=== PATIENT | female | born 1940 | race Caucasian/White ===

== ENCOUNTER 2022-12-12 15:45 | Inpatient (IN) | payer MEDICARE, OTHER, SELFPAY ==
[2022-12-12] VITALS (18 sets, daily range): BP systolic 67–126; BP diastolic 45–85; PULSE 57–145; RESP 13–23; TEMP 36.5–37.2; O2SAT 84–100; BMI 30.2
--- NOTE | 2022-12-12 16:14 | ED.GENADUL1 ---
Documented by User: Duane Wilson MD 12/12/22 16:17 HPI - General Adult General Chief complaint: Anxiety Stated complaint: tachycardia Time Seen by Provider: 12/12/22 16:05 Source: patient and other Source information: EMS Mode of arrival: ambulance Limitations: no limitations and altered mental status History of Present Illness HPI narrative: this patient's here with two daughters for evaluation of not feeling well increasing weakness today. She does have anxiety disorder as well as dementia so she herself is a limited historian. However she and her family indicate that they've not had any problems with congestive heart failure myocardial infarctions cardiac arrhythmias. She does have hypertension and takes a beta yari including a DOMINIQUE inhibitor as well. She is not any pain or discomfort. She lost her three months ago is now living with the daughters. She is not known to have a thyroid disorder. She's compliant with medications because the daughters give it to her. She has no discomfort today and no real shortness of breath. Related Data Home Medications Medication Instructions Recorded Confirmed atenolol 25 mg tablet 25 mg PO Q24H 12/12/22 12/12/22 buspirone 5 mg tablet 5 mg PO TID 12/12/22 12/12/22 diazepam 5 mg tablet 5 mg PO BID 12/12/22 12/12/22 lisinopril 20 mg tablet 20 mg PO DAILY 12/12/22 12/12/22 meloxicam 7.5 mg tablet 7.5 mg PO DAILY 12/12/22 12/12/22 oxycodone 10 mg tablet 10 mg PO Q12H 12/12/22 12/12/22 Allergies Allergy/AdvReac Type Severity Reaction Status Date / Time No Known Drug Allergies Allergy Verified 12/12/22 15:41 [facility] Medical History (Updated 12/12/22 @ 21:17 by Esmer Sage) Surgical History (Updated 12/12/22 @ 21:17 by Esmer Sage) Family History (Updated 12/12/22 @ 21:07 by Esmer Sage) Father Family history of cancer Grandmother Family history of stroke Social History (Updated 12/12/22 @ 21:08 by Esmer Sage) Within the past year, how often did you have a drink containing alcohol: never Score interpretation: A score less than 3 is consistent with normal alcohol consumption. 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 Highest level of school completed/degree received: 11th grade Are you now , , , , never or living with a partner: In a typical week, how many times do you talk on the telephone with family, friends, or neighbors: 3 or more times per week How often do you get together with friends or relatives: 3 or more times per week How often do you attend methodist or taoism services: never Do you belong to any clubs or organizations such as methodist groups unions, [employer] or athletic groups, or school groups: no Total score: 1 Score interpretation: A score of less than or equal to 1 indicates the most socially isolated. Little interest or pleasure in doing things: not at all Feeling down, depressed, or hopeless: not at all Feel stressed/tense/nervous/anxious/difficulty sleeping: not at all Life stressors: recent of family or friend Do you think of yourself as: straight/heterosexual Gender Identity: female Exam Narrative Exam Narrative: awake alert pleasant denies any discomfort but is not a great historian as noted previously consistent with her history of dementia HEENT shows no evidence of pallor or anemia or or thyromegaly. I shows no scleral icterus or conjunctivitis and extraocular muscles are normal. Neck is soft and supple Chest wall is unremarkable no sternotomy incisions are noted. Tenriism is her lungs to be clear with no wheezes rales or rhonchi in her pulse ox is ninety-five percent on room air. 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 No P waves could really be identified on the EKG. Leg show no evidence of venous cords edema swelling or erythema. Constitutional Vital Signs - 24 hr 12/12/22 15:41 12/12/22 15:47 12/12/22 15:48 Temperature 99 F Pulse Rate 145 H 144 H Pulse Rate [Monitor] 145 H Respiratory Rate 20 21 15 Blood Pressure Blood Pressure [Right Arm] 93/76 Pulse Oximetry 95 96 Oxygen Delivery Method Room Air 12/12/22 15:49 12/12/22 16:48 12/12/22 17:00 Temperature Pulse Rate 137 H 132 H 139 H Pulse Rate [Monitor] Respiratory Rate 23 22 22 Blood Pressure 111/84 H 106/72 99/79 Blood Pressure [Right Arm] Pulse Oximetry 97 100 91 L Oxygen Delivery Method 12/12/22 17:15 12/12/22 17:15 12/12/22 17:30 Temperature Pulse Rate 131 H 132 H 132 H Pulse Rate [Monitor] Respiratory Rate 14 20 17 Blood Pressure 120/85 H 120/85 H 83/61 L Blood Pressure [Right Arm] Pulse Oximetry 94 L 95 95 Oxygen Delivery Method 12/12/22 17:45 12/12/22 18:01 12/12/22 18:02 Temperature Pulse Rate 135 H 133 H 134 H Pulse Rate [Monitor] Respiratory Rate 21 23 18 Blood Pressure 104/69 75/54 L 67/48 L Blood Pressure [Right Arm] Pulse Oximetry 84 L 95 97 Oxygen Delivery Method 12/12/22 18:03 12/12/22 18:20 12/12/22 18:23 Temperature Pulse Rate 137 H 137 H 138 H Pulse Rate [Monitor] Respiratory Rate 21 21 18 Blood Pressure 84/58 L 71/45 L 89/71 L Blood Pressure [Right Arm] Pulse Oximetry 95 94 L Oxygen Delivery Method 12/12/22 19:00 12/12/22 19:00 12/12/22 19:15 Temperature Pulse Rate 74 73 74 Pulse Rate [Monitor] Respiratory Rate 21 13 23 Blood Pressure 96/63 96/63 114/82 H Blood Pressure [Right Arm] Pulse Oximetry 93 L Oxygen Delivery Method 12/12/22 19:30 Temperature Pulse Rate Pulse Rate [Monitor] Respiratory Rate Blood Pressure 126/59 H Blood Pressure [Right Arm] Pulse Oximetry Oxygen Delivery Method Course Vital Signs Vital signs: Vital Signs Temperature 99 F 12/12/22 15:41 Pulse Rate 145 H 12/12/22 15:41 Respiratory Rate 20 12/12/22 15:41 Blood Pressure 93/76 12/12/22 15:41 Pulse Oximetry 95 12/12/22 15:41 Oxygen Delivery Method Room Air 12/12/22 15:41 Temperature 97.7 F 12/12/22 20:34 Pulse Rate 57 L 12/12/22 20:34 Respiratory Rate 20 12/12/22 20:34 Blood Pressure 122/60 H 12/12/22 20:34 Pulse Oximetry 95 12/12/22 20:34 Oxygen Delivery Method Room Air 12/12/22 22:30 Medical Decision Making Lab Data Labs: Lab Results 12/12/22 12/12/22 Range/Units 16:35 17:15 WBC 8.3 (4.0-11.0) 10^3/uL RBC 4.17 L (4.20-5.40) 10^6/uL Hgb 13.4 (12.0-16.0) g/dL Hct 39.1 (36.0-48.0) % MCV 93.8 (81.0-99.0) fL MCH 32.1 (26.7-34.0) pg MCHC 34.3 (29.9-35.2) g/dL RDW 12.6 (11.0-15.0) % Plt Count 197 (150-450) 10^3/uL MPV 11.1 (9.5-13.5) fL Neut % (Auto) 69.3 (43.0-75.0) % Lymph % (Auto) 17.7 L (20.5-60.0) % Hitchcock % (Auto) 9.6 (1.7-12.0) % Eos % (Auto) 2.2 (0.9-7.0) % Baso % (Auto) 0.8 (0.2-2.0) % Neut # (Auto) 5.8 (1.4-6.5) 10^3/uL Lymph # (Auto) 1.5 (1.2-3.8) 10^3/uL [place] # (Auto) 0.8 (0.3-0.8) 10^3/uL Eos # (Auto) 0.2 (0.0-0.7) 10^3/uL Baso # (Auto) 0.1 (0.0-0.1) 10^3/uL Abs Immat Gran (auto) 0.03 (0.00-0.03) 10^3/uL Imm/Tot Granulo (auto) 0.4 (0.0-0.5) % D-Dimer 0.67 H* (<=0.59) mg/L FEU Sodium 136 (136-145) mmol/L Potassium 4.6 (3.5-5.1) mmol/L Chloride 106 (98-107) mmol/L Carbon Dioxide 21.4 (21.0-32.0) mmol/L Anion Gap 13.2 BUN 17.0 (7.0-18.0) mg/dL Creatinine 1.08 H (0.55-1.02) mg/dL Est GFR ( Amer) 59 L (>=60) Est GFR (Non-Af Amer) 48 L (>=60) BUN/Creatinine Ratio 15.7 Glucose 114 H (74-106) mg/dL Lactate 2.1 H (0.4-2.0) mmol/L Calcium 9.2 (8.5-10.1) mg/dL Total Bilirubin 0.2 (0.2-1.0) mg/dL AST 25 (15-37) U/L ALT 32 (14-59) U/L Alkaline Phosphatase 37 L (46-116) U/L Troponin I High Sens 8.8 (4.0-51.3) pg/mL NT-Pro-B Natriuret Pep 567.0 (<=1800.0) pg/mL Total Protein 6.5 (6.4-8.2) g/dL Albumin 3.5 (3.4-5.0) g/dL Globulin 3.0 g/dL Albumin/Globulin Ratio 1.2 TSH 1.476 (0.358-3.740) uIU/mL Urine Color Lt. yellow (YELLOW) Urine Clarity Sl cloudy (CLEAR) Urine pH 6.0 (5.0-9.0) Ur Specific [place] 1.015 (1.005-1.025) Urine Protein Trace (NEG/TRACE) mg/dL Urine Glucose (UA) Negative (NEGATIVE) mg/dL Urine Ketones Negative (NEGATIVE) mg/dL Urine Occult Blood Small A (NEGATIVE) Urine Nitrite Negative (NEGATIVE) Urine Bilirubin Negative (NEGATIVE) Urine Urobilinogen 0.2 (0.2-1.0) EU/dL Ur Leukocyte Esterase Large A (NEGATIVE) Urine RBC 2-5 A (0-2) #/HPF Urine WBC >100 A (NONE SEEN) #/HPF Ur Squamous Epith Cells Moderate A (NONE/RARE) #/LPF Urine Crystals None seen (None Seen) #/HPF Urine Bacteria Large A (NONE SEEN) #/HPF Urine Casts None seen (NONE SEEN) #/LPF Urine Mucus None seen (NONE SEEN) Ur Culture Indicated? Yes Discharge Plan Discharge Chief Complaint: Anxiety Clinical Impression: Sepsis, Acute anxiety, Acute UTI, Atrial fibrillation with rapid ventricular response Patient Disposition: Admitted as Observation Time of Disposition Decision: 19:33 Discharge Date/Time: 12/12/22 20:21 Sign Out Sign Out Data: Patient Sign Out occurred on 12/12/22 at 19:12. Patient's care was discussed, and care was transferred from Duane Wilson MD to Hansel Prescott. Sign Out Comment: patient likely has sepsis secondary to UTI but we are waiting for lactate and CTA chest - signed out to Dr Prescott at 7pm - plan to admit once workup is completed. Last updated by Duane Wilson MD at 12/12/22 19:04 Documented by User: Hansel Prescott 12/12/22 19:36 HPI - General Adult General Chief complaint: Anxiety Stated complaint: tachycardia Time Seen by Provider: 12/12/22 16:05 Related Data Home Medications Medication Instructions Recorded Confirmed atenolol 25 mg tablet 25 mg PO Q24H 12/12/22 12/12/22 buspirone 5 mg tablet 5 mg PO TID 12/12/22 12/12/22 diazepam 5 mg tablet 5 mg PO BID 12/12/22 12/12/22 lisinopril 20 mg tablet 20 mg PO DAILY 12/12/22 12/12/22 meloxicam 7.5 mg tablet 7.5 mg PO DAILY 12/12/22 12/12/22 oxycodone 10 mg tablet 10 mg PO Q12H 12/12/22 12/12/22 Allergies Allergy/AdvReac Type Severity Reaction Status Date / Time No Known Drug Allergies Allergy Verified 12/12/22 15:41 PFSH PFS Medical History (Updated 12/12/22 @ 21:17 by Esmer Sage) Surgical History (Updated 12/12/22 @ 21:17 by Esmer Sage) Family History (Updated 12/12/22 @ 21:07 by Esmer Sage) Father Family history of cancer Grandmother Family history of stroke Social History (Updated 12/12/22 @ 21:08 by Esemr Sage) Within the past year, how often did you have a drink containing alcohol: never Score interpretation: A score less than 3 is consistent with normal alcohol consumption. 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 Highest level of school completed/degree received: 11th grade Are you now , , , , never or living with a partner: In a typical week, how many times do you talk on the telephone with family, friends, or neighbors: 3 or more times per week How often do you get together with friends or relatives: 3 or more times per week How often do you attend methodist or taoism services: never Do you belong to any clubs or organizations such as methodist groups unions, [employer] or athletic groups, or school groups: no Total score: 1 Score interpretation: A score of less than or equal to 1 indicates the most socially isolated. Little interest or pleasure in doing things: not at all Feeling down, depressed, or hopeless: not at all Feel stressed/tense/nervous/anxious/difficulty sleeping: not at all Life stressors: recent of family or friend Do you think of yourself as: straight/heterosexual Gender Identity: female Exam Constitutional Vital Signs - 24 hr 12/12/22 15:41 12/12/22 15:47 12/12/22 15:48 Temperature 99 F Pulse Rate 145 H 144 H Pulse Rate [Monitor] 145 H Respiratory Rate 20 21 15 Blood Pressure Blood Pressure [Right Arm] 93/76 Pulse Oximetry 95 96 Oxygen Delivery Method Room Air 12/12/22 15:49 12/12/22 16:48 12/12/22 17:00 Temperature Pulse Rate 137 H 132 H 139 H Pulse Rate [Monitor] Respiratory Rate 23 22 22 Blood Pressure 111/84 H 106/72 99/79 Blood Pressure [Right Arm] Pulse Oximetry 97 100 91 L Oxygen Delivery Method 12/12/22 17:15 12/12/22 17:15 12/12/22 17:30 Temperature Pulse Rate 131 H 132 H 132 H Pulse Rate [Monitor] Respiratory Rate 14 20 17 Blood Pressure 120/85 H 120/85 H 83/61 L Blood Pressure [Right Arm] Pulse Oximetry 94 L 95 95 Oxygen Delivery Method 12/12/22 17:45 12/12/22 18:01 12/12/22 18:02 Temperature Pulse Rate 135 H 133 H 134 H Pulse Rate [Monitor] Respiratory Rate 18 Blood Pressure 104/69 75/54 L 67/48 L Blood Pressure [Right Arm] Pulse Oximetry 84 L 95 97 Oxygen Delivery Method 12/12/22 18:03 12/12/22 18:20 12/12/22 18:23 Temperature Pulse Rate 137 H 137 H 138 H Pulse Rate [Monitor] Respiratory Rate 18 Blood Pressure 84/58 L 71/45 L 89/71 L Blood Pressure [Right Arm] Pulse Oximetry 95 94 L Oxygen Delivery Method 12/12/22 19:00 12/12/22 19:00 12/12/22 19:15 Temperature Pulse Rate 74 73 74 Pulse Rate [Monitor] Respiratory Rate 23 Blood Pressure 96/63 96/63 114/82 H Blood Pressure [Right Arm] Pulse Oximetry 93 L Oxygen Delivery Method 12/12/22 19:30 Temperature Pulse Rate Pulse Rate [Monitor] Respiratory Rate Blood Pressure 126/59 H Blood Pressure [Right Arm] Pulse Oximetry Oxygen Delivery Method Course Vital Signs Vital signs: Vital Signs Temperature 99 F 12/12/22 15:41 Pulse Rate 145 H 12/12/22 15:41 Respiratory Rate 20 12/12/22 15:41 Blood Pressure 93/76 12/12/22 15:41 Pulse Oximetry 95 12/12/22 15:41 Oxygen Delivery Method Room Air 12/12/22 15:41 Temperature 97.7 F 12/12/22 20:34 Pulse Rate 57 L 12/12/22 20:34 Respiratory Rate 20 12/12/22 20:34 Blood Pressure 122/60 H 12/12/22 20:34 Pulse Oximetry 95 12/12/22 20:34 Oxygen Delivery Method Room Air 12/12/22 22:30 Medical Decision Making MDM Narrative Medical decision making narrative: I took over this patient at 7 PM with shift change by signed out by Dr. Pranav Wilson. His exam findings and HPI are noted above. 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 Blood drawn and sent for evaluation, including blood cultures and lactate per sepsis protocol. urine was obtained sent for testing and shown to be infected. Patient with unremarkable CBC including normal white blood cell count lactate is elevated at 2.1. BMP reveals normal BUS with a creatinine of 1.08, minimally elevated. UA shows large leukocyte esterase and sign of infection is likely source of this patient's sepsis. Troponin and BNP were negative. chest x-ray shows atelectasis versus findings that may indicate mucous plugging. the patient was given IV ciprofloxacin. She was also given normal saline IV fluid and that caused her rapid atrial fibrillation, rate controlled atrial fibrillation. My two EKG interpretations are noted above. the patient was apparently given IV Ativan. That seemed to increase her agitation, according to Dr. Kimball. He ordered her to receive IV Valium as well. CT of the chest was ordered and is currently pending. She is DNR comfort care. Plan is to admit this patient to the hospitalist service for further evaluation treatment which will include normal saline IV fluid and continue IV antibiotics. I paged the on-call tell hospitalist to discuss admission. Dr. zhong and I discussed the case and he requested obs admission status, med/surg floor without telemetry since she is a DNRCC. I will review CTA result. Lab Data Lab results reviewed: Yes I reviewed the patient's lab results Labs: Lab Results 12/12/22 12/12/22 Range/Units 16:35 17:15 WBC 8.3 (4.0-11.0) 10^3/uL RBC 4.17 L (4.20-5.40) 10^6/uL Hgb 13.4 (12.0-16.0) g/dL Hct 39.1 (36.0-48.0) % MCV 93.8 (81.0-99.0) fL MCH 32.1 (26.7-34.0) pg MCHC 34.3 (29.9-35.2) g/dL RDW 12.6 (11.0-15.0) % Plt Count 197 (150-450) 10^3/uL MPV 11.1 (9.5-13.5) fL Neut % (Auto) 69.3 (43.0-75.0) % Lymph % (Auto) 17.7 L (20.5-60.0) % [place] % (Auto) 9.6 (1.7-12.0) % Eos % (Auto) 2.2 (0.9-7.0) % Baso % (Auto) 0.8 (0.2-2.0) % Neut # (Auto) 5.8 (1.4-6.5) 10^3/uL Lymph # (Auto) 1.5 (1.2-3.8) 10^3/uL [place] # (Auto) 0.8 (0.3-0.8) 10^3/uL Eos # (Auto) 0.2 (0.0-0.7) 10^3/uL Baso # (Auto) 0.1 (0.0-0.1) 10^3/uL Abs Immat Gran (auto) 0.03 (0.00-0.03) 10^3/uL Imm/Tot Granulo (auto) 0.4 (0.0-0.5) % D-Dimer 0.67 H* (<=0.59) mg/L FEU Sodium 136 (136-145) mmol/L Potassium 4.6 (3.5-5.1) mmol/L Chloride 106 (98-107) mmol/L Carbon Dioxide 21.4 (21.0-32.0) mmol/L Anion Gap 13.2 BUN 17.0 (7.0-18.0) mg/dL Creatinine 1.08 H (0.55-1.02) mg/dL Est GFR ( Amer) 59 L (>=60) Est GFR (Non-Af Amer) 48 L (>=60) BUN/Creatinine Ratio 15.7 Glucose 114 H (74-106) mg/dL Lactate 2.1 H (0.4-2.0) mmol/L Calcium 9.2 (8.5-10.1) mg/dL Total Bilirubin 0.2 (0.2-1.0) mg/dL AST 25 (15-37) U/L ALT 32 (14-59) U/L Alkaline Phosphatase 37 L (46-116) U/L Troponin I High Sens 8.8 (4.0-51.3) pg/mL NT-Pro-B Natriuret Pep 567.0 (<=1800.0) pg/mL Total Protein 6.5 (6.4-8.2) g/dL Albumin 3.5 (3.4-5.0) g/dL Globulin 3.0 g/dL Albumin/Globulin Ratio 1.2 TSH 1.476 (0.358-3.740) uIU/mL Urine Color Lt. yellow (YELLOW) Urine Clarity Sl cloudy (CLEAR) Urine pH 6.0 (5.0-9.0) Ur Specific [place] 1.015 (1.005-1.025) Urine Protein Trace (NEG/TRACE) mg/dL Urine Glucose (UA) Negative (NEGATIVE) mg/dL Urine Ketones Negative (NEGATIVE) mg/dL Urine Occult Blood Small A (NEGATIVE) Urine Nitrite Negative (NEGATIVE) Urine Bilirubin Negative (NEGATIVE) Urine Urobilinogen 0.2 (0.2-1.0) EU/dL Ur Leukocyte Esterase Large A (NEGATIVE) Urine RBC 2-5 A (0-2) #/HPF Urine WBC >100 A (NONE SEEN) #/HPF Ur Squamous Epith Cells Moderate A (NONE/RARE) #/LPF Urine Crystals None seen (None Seen) #/HPF Urine Bacteria Large A (NONE SEEN) #/HPF Urine Casts None seen (NONE SEEN) #/LPF Urine Mucus None seen (NONE SEEN) Ur Culture Indicated? Yes Imaging Data Chest x-ray: Radiologist's impression: Patient Name: PEDRO HENSLEY MRN: [id number] date: 1940 Sex: F Assigned Patient Location: ED.MAIN Current Patient Location: ER Accession/Order Number: [id number] Exam Date: 12/12/2022 16:40 Report Date: 12/12/2022 16:58 At the request of: DUANE WILSON Procedure: XR chest 1V EXAM: XR chest 1V HISTORY: tachycardia COMPARISON: None. TECHNIQUE: Chest X-ray AP, 1 view FINDINGS: Support devices: None. Lungs/pleura: No pneumothorax. There is right middle and upper lobe opacification with shift of the mediastinum and trachea to the right, representing right upper and middle lobes atelectasis. There is blunting of the lateral costophrenic angles, may represent small pleural effusions. Heart and mediastinum: Normal contours. Bones: No acute abnormality identified. Impression: Radiographic evidence of right upper and middle lobes atelectasis and small bilateral pleural effusions. Finding can be due to mucous plugging. CT of the chest is recommended for better evaluation. Electronically authenticated by: SHILA SHEEHAN Date: 12/12/2022 16:58 ECG Data Interpretation: #1 EKG - interpretation: Emergency Department physician interpretation. rapid atrial fibrillation at 143bpm. PVC noted. No ST elevation but there is an inverted T-wave in lead aVL #2 EKG - EKG interpretation: Emergency Department physician interpretation. rate controlled atrial fibrillation at 77bpm. Normal axis, normal intervals and no ST segment elevation or depression. inverted T-wave in lead aVL is now flattened Discharge Plan Discharge Chief Complaint: Anxiety Clinical Impression: Sepsis, Acute anxiety, Acute UTI, Atrial fibrillation with rapid ventricular response Patient Disposition: Admitted as Observation Time of Disposition Decision: 19:33 Discharge Date/Time: 12/12/22 20:21 Sign Out Sign Out Data: Patient Sign Out occurred on 12/12/22 at 19:12. Patient's care was discussed, and care was transferred from Duane Wilson MD to Hansel Prescott. Sign Out Comment: patient likely has sepsis secondary to UTI but we are waiting for lactate and CTA chest - signed out to Dr Prescott at 7pm - plan to admit once workup is completed. Last updated by Duane Wilson MD at 12/12/22 19:04
--- NOTE | 2022-12-12 16:17 | ECG_ITS ---
The [facility] Test Date: 2022-12-12 Pat Name: PEDRO HENSLEY Department: Room: - Gender: Female Marketer: : 1940 Requested By: Order Number: [id number] Reading MD: AMIRAH HUDSON Measurements Intervals [place] Rate: 143 P: -14597 VT: -54055 QRS: 60 QRSD: 76 T: 51 QT: 286 QTc: 369 Interpretive Statements 1420 Undetermined rhythm (Possible supraventricular tachycardia) 1570 with occasional ventricular premature complexes [address] depression 9150 abnormal ECG No previous ECG available for comparison Electronically Signed On 12-13-2022 7:10:05 EDT by AMIRAH HUDSON
--- NOTE | 2022-12-12 16:40 | XR_ITS ---
The [address] [address] Patient Name: PEDRO HENSLEY MRN: [id number] date: 1940 Sex: F Assigned Patient Location: ED.MAIN Current Patient Location: ER Accession/Order Number: [id number] Exam Date: 12/12/2022 16:40 Report Date: 12/12/2022 16:58 At the request of: LACI DONOHUE Procedure: XR chest 1V EXAM: XR chest 1V HISTORY: tachycardia COMPARISON: None. TECHNIQUE: Chest X-ray AP, 1 view FINDINGS: Support devices: None. Lungs/pleura: No pneumothorax. There is right middle and upper lobe opacification with shift of the mediastinum and trachea to the right, representing right upper and middle lobes atelectasis. There is blunting of the lateral costophrenic angles, may represent small pleural effusions. Heart and mediastinum: Normal contours. Bones: No acute abnormality identified. Impression: Radiographic evidence of right upper and middle lobes atelectasis and small bilateral pleural effusions. Finding can be due to mucous plugging. CT of the chest is recommended for better evaluation. Electronically authenticated by: SHILA SHEEHAN Date: 12/12/2022 16:58
[2022-12-12] MEDS: METOPROLOL TARTRATE 5 MG/5 ML VIAL IVP ×3 (16:49→17:47)
[2022-12-12] MEDS: 0.9 % SODIUM CHLORIDE 1,000 ML 100 ML IV ×2 (16:50→23:53)
[2022-12-12 16:53] LABS: Basophils Absolute Auto 0.1 10^3/uL (0.0-0.1); Basophils Percent Auto 0.8 % (0.2-2.0); Eosinophils Absolute Auto 0.2 10^3/uL (0.0-0.7); Eosinophils Percent Auto 2.2 % (0.9-7.0); Hematocrit 39.1 % (36.0-48.0); Hemoglobin 13.4 g/dL (12.0-16.0); Immature Granulocytes Abs Auto 0.03 10^3/uL (0.00-0.03); Immature Granulocytes Pct Auto 0.4 % (0.0-0.5); Lymphocytes Absolute Auto 1.5 10^3/uL (1.2-3.8); Lymphocytes Percent Auto 17.7 % (20.5-60.0); Mean Corpuscular HGB Conc 34.3 g/dL (29.9-35.2); Mean Corpuscular Hemoglobin 32.1 pg (26.7-34.0); Mean Corpuscular Volume 93.8 fL (81.0-99.0); Mean Platelet Volume 11.1 fL (9.5-13.5); Monocytes Absolute Auto 0.8 10^3/uL (0.3-0.8); Monocytes Percent Auto 9.6 % (1.7-12.0); Neutrophils Absolute Auto 5.8 10^3/uL (1.4-6.5); Neutrophils Percent Auto 69.3 % (43.0-75.0); Platelet Count 197 10^3/uL (150-450); Red Blood Count 4.17 10^6/uL (4.20-5.40); Red Cell Distribution Width 12.6 % (11.0-15.0); White Blood Count 8.3 10^3/uL (4.0-11.0)
[2022-12-12 17:11] LABS: Alanine Aminotransferase 32 U/L (14-59); Albumin Globulin Ratio 1.2; Albumin Level 3.5 g/dL (3.4-5.0); Alkaline Phosphatase 37 U/L (46-116); Anion Gap 13.2; Aspartate Amino Transferase 25 U/L (15-37); BUN Creatinine Ratio 15.7; Bilirubin Total 0.2 mg/dL (0.2-1.0); Calcium 9.2 mg/dL (8.5-10.1); Carbon Dioxide 21.4 mmol/L (21.0-32.0); Chloride 106 mmol/L (98-107); Estimated GFR (African America 59 (>=60); Estimated GFR (Non-African Ame 48 (>=60); Glucose 114 mg/dL (74-106); Lactate/Lactic Acid 2.1 mmol/L (0.4-2.0); Potassium 4.6 mmol/L (3.5-5.1); Sodium 136 mmol/L (136-145); Total Protein 6.5 g/dL (6.4-8.2); Troponin I High Sensitivity 8.8 pg/mL (4.0-51.3)
[2022-12-12 17:16] LABS: Thyroid Stimulating Hormone 1.476 uIU/mL (0.358-3.740)
[2022-12-12 17:18] LABS: D Dimer 0.67 mg/L FEU (<=0.59)
[2022-12-12 17:26] LABS: Bilirubin Urine NEGATIVE (NEGATIVE); Blood Urine SMALL (NEGATIVE); Clarity Urine SL CLOUDY (CLEAR); Color Urine LT. YELLOW (YELLOW); Glucose Urine UA NEGATIVE (NEGATIVE); Ketones Urine NEGATIVE (NEGATIVE); Leukocyte Esterase Urine LARGE (NEGATIVE); Nitrite Urine NEGATIVE (NEGATIVE); Protein Urine TRACE mg/dL (NEG/TRACE); Specific Gravity Urine 1.015 (1.005-1.025); Urobilinogen Urine 0.2 EU/dL (0.2-1.0)
[2022-12-12 17:28] LABS: Urine Microscopic Indicated YES
--- NOTE | 2022-12-12 17:31 | CT_ITS ---
[address] [address] Patient Name: PEDRO HENSLEY MRN: [id number] date: 1940 Sex: F Assigned Patient Location: ER Current Patient Location: Accession/Order Number: [id number] Exam Date: 12/12/2022 19:21 Report Date: 12/12/2022 20:21 At the request of: LACI DONOHUE Procedure: CT angio chest EXAMINATION: CHEST CT WITH CONTRAST (PULMONARY EMBOLISM PROTOCOL) Indication: dyspnea Technique: Spiral CT acquisition of the chest from the thoracic inlet to the upper abdomen following IV contrast. Maximum intensity projection (MIP)reconstructions were performed. All CT scans at this facility use dose modulation, iterative reconstruction, and/or weight based dosing when appropriate to reduce radiation dose to as low as reasonably achievable. Contrast: 100 mL of Omnipaque 350 IV Comparison: Chest radiograph 12/12/2022 RESULT: Limitations: None. Evaluation for thromboembolic disease: - Right heart chambers: No thromboembolic disease. - Main pulmonary arteries: No thromboembolic disease. - Lobar pulmonary arteries: No thromboembolic disease. - Segmental pulmonary arteries: No thromboembolic disease. - Subsegmental pulmonary arteries: No thromboembolic disease. Lines, tubes, and devices: None. Lung parenchyma and pleura: No consolidation. No suspicious pulmonary nodule. No pleural effusion. Central airways are patent. Bibasilar atelectasis and mild scarring. Thoracic inlet, heart, and mediastinum: No lymphadenopathy in the axillary, mediastinal, or hilar regions. 3.9 cm aneurysmal dilation ascending thoracic aorta. Main pulmonary artery is normal in caliber.. Mild cardiomegaly. Moderate coronary artery atherosclerotic calcifications are noted, although the study is not optimized for coronary assessment. No pericardial effusion or thickening. Small hiatal hernia. Thyroid gland is unremarkable. Bones and soft tissues: No destructive bone lesion. Degenerative changes of the thoracic spine. Chest wall is unremarkable. Upper abdomen: No abnormality in the imaged upper abdomen. . IMPRESSION: No CT evidence of pulmonary embolism or acute findings in the thorax. 3.9 cm aneurysmal dilation ascending thoracic aorta and moderate coronary artery calcifications. Electronically authenticated by: ORLY KEARNEY Date: 12/12/2022 20:21
[2022-12-12 17:32] LABS: Bacteria Urine LARGE #/HPF (NONE SEEN); Cast Seen? NONE SEEN #/LPF (NONE SEEN); Crystals Seen? None Seen #/HPF (None Seen); Mucus Urine NONE SEEN (NONE SEEN); Squamous Epithelial Cell Urine MODERATE #/LPF (NONE/RARE); Urine Culture Indicated YES; WBC Urine >100 #/HPF (NONE SEEN)
[2022-12-12] MEDS: CIPROFLOXACIN IN 5 % DEXTROSE 400 MG/200 ML PIGGYBACK 200 MG IV (17:50)
[2022-12-12] MEDS: LORAZEPAM 2 MG/ML 1 ML VIAL IV (17:50)
[2022-12-12] MEDS: 0.9 % SODIUM CHLORIDE 1,000 ML 1000 ML IV (18:59)
[2022-12-12] MEDS: DIAZEPAM 5 MG/ML - 2 ML INJ SYRINGE IV (19:04)
--- NOTE | 2022-12-12 19:14 | PC.NURSE ---
pt more confused and irritable at this time. Pt assisted to bedpan with another RN pt insisted she feels pressure down there. Pt did produce urine. skin care completed. 2 daughters remain at bedside. Dr at bedside. Verbal order received for 5mg of IV valium (see MAR).
--- NOTE | 2022-12-12 19:25 | ECG_ITS ---
[facility] Test Date: 2022-12-12 Pat Name: PEDRO HENSLEY Department: Room: 2181 Gender: Female Medical Sales: : 1940 Requested By: Hansel Prescott Order Number: [id number] Reading MD: AMIRAH HUDSON Measurements Intervals [place] Rate: 77 P: -[id number] AR: 440 QRS: 64 QRSD: 78 T: 67 QT: 394 QTc: 425 Interpretive Statements Sinus rhythm with first degree AV block 9140 abnormal rhythm ECG Electronically Signed On 12-13-2022 7:13:51 EDT by AMIRAH HUDSON
--- NOTE | 2022-12-12 20:06 | PC.NURSE ---
Pt's granddaughter, Gail, called at this time in concerns that pt's daughter Donna taking pt's pain medications. Per granddaughter pt goes between [place] and [facility] for care when pt is at [facility] pt does not get her medications correctly and always starts acting differently and when pt is at [facility] pt will cry stating she doesn't want to go back to [facility]. Granddaughter states that she was with pt and went to give her pain medication there was not any Oxycodone and instead it was Valium. Pt has been getting extra Valium and no Oxycodone when at [facility]. Granddaughter states that pt just got a refill of Oxycodone 11/16 and the next week the pt was missing [address] Yeung is aware of this. This nurse explained to pt that pt will be admitted and that medications will be controlled while here and that social sciences instructor will be involved and that they will call adult protection services while pt is in hospital.
[2022-12-12] MEDS: QUETIAPINE FUMARATE 25 MG TABLET 12.5 MG PO (21:02)
--- NOTE | 2022-12-12 22:39 | P.PN_ITS ---
Progress Note: Subjective Subjective Interval history: CC: Weakness, worsening confusion HPI: This is a 82 years old white female with history of congestive heart failure, coronary artery disease, dementia, atrial fibrillation who presents to emergency room with above complaints. Patient is a poor historian. Majority of information obtained from ER physician and medical records. Apparently patient has been brought in by family (2 daughters). Patient denies any pain, shortness of breath or fevers. Apparently patient lost her about 3 months ago and now she is living with her daughters. Patient is compliant (daughters providing medications for her). Evaluation in the emergency room was significant for signs of urinary tract infection, tachycardia, elevated lactic acid. Patient triggered SIRS/sepsis criteria. Medical service is consulted for admission. Exam Narrative Exam Narrative: Physical Exam: Not in distress, hard of hearing, confused, Head - atraumatic, eyes - pupils equal, round, reactive to light, extra ocular movement intact, MMM Neck - supple, thyroid not enlarged, LN not palpated Lungs - clear to auscultation, no dullness on percussion CVS - heart sounds S1, S2, no additional murmurs gallop, irregularly irregular rate and rhythm Gastrointestinal?abdomen is soft, non-tender, non-distended, no organomegaly, positive bowel sounds Extremities no clubbing, cyanosis or edema Neurological?cranial nerve II?XII grossly intact, no meningeal signs, no cerebellar signs, no sensory deficit Musculoskeletal - DJD related 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, no effusions, ROM preserved Dermatological - the skin dry, warm, no rashes Psychiatric?patient has flat affect Constitutional Vital Signs - 24 hr 12/12/22 15:41 12/12/22 15:47 12/12/22 15:48 Temperature 99 F Pulse Rate 145 H 144 H Pulse Rate [Monitor] 145 H Respiratory Rate 20 21 15 Blood Pressure Blood Pressure [Right Arm] 93/76 Pulse Oximetry 95 96 Oxygen Delivery Method Room Air 12/12/22 15:49 12/12/22 16:48 12/12/22 17:00 Temperature Pulse Rate 137 H 132 H 139 H Pulse Rate [Monitor] Respiratory Rate 23 22 22 Blood Pressure 111/84 H 106/72 99/79 Blood Pressure [Right Arm] Pulse Oximetry 97 100 91 L Oxygen Delivery Method 12/12/22 17:15 12/12/22 17:15 12/12/22 17:30 Temperature Pulse Rate 131 H 132 H 132 H Pulse Rate [Monitor] Respiratory Rate 14 20 17 Blood Pressure 120/85 H 120/85 H 83/61 L Blood Pressure [Right Arm] Pulse Oximetry 94 L 95 95 Oxygen Delivery Method 12/12/22 17:45 12/12/22 18:01 12/12/22 18:02 Temperature Pulse Rate 135 H 133 H 134 H Pulse Rate [Monitor] Respiratory Rate 21 23 18 Blood Pressure 104/69 75/54 L 67/48 L Blood Pressure [Right Arm] Pulse Oximetry 84 L 95 97 Oxygen Delivery Method 12/12/22 18:03 12/12/22 18:20 12/12/22 18:23 Temperature Pulse Rate 137 H 137 H 138 H Pulse Rate [Monitor] Respiratory Rate 21 21 18 Blood Pressure 84/58 L 71/45 L 89/71 L Blood Pressure [Right Arm] Pulse Oximetry 95 94 L Oxygen Delivery Method 12/12/22 19:00 12/12/22 19:00 12/12/22 19:15 Temperature Pulse Rate 74 73 74 Pulse Rate [Monitor] Respiratory Rate 21 13 23 Blood Pressure 96/63 96/63 114/82 H Blood Pressure [Right Arm] Pulse Oximetry 93 L Oxygen Delivery Method 12/12/22 19:30 12/12/22 20:34 12/12/22 20:34 Temperature 97.7 F Pulse Rate 57 L Pulse Rate [Monitor] Respiratory Rate 20 Blood Pressure 126/59 H Blood Pressure [Right Arm] 122/60 H Pulse Oximetry 95 Oxygen Delivery Method Room Air Room Air 12/12/22 22:30 Temperature Pulse Rate Pulse Rate [Monitor] Respiratory Rate Blood Pressure Blood Pressure [Right Arm] Pulse Oximetry Oxygen Delivery Method Room Air Progress Note: Objective Labs Labs: Short CBC 12/12/22 Range/Units 16:35 WBC 8.3 (4.0-11.0) 10^3/uL Hgb 13.4 (12.0-16.0) g/dL Hct 39.1 (36.0-48.0) % Plt Count 197 (150-450) 10^3/uL BMP 12/12/22 16:35 Sodium 136 Potassium 4.6 Chloride 106 Carbon Dioxide 21.4 BUN 17.0 Creatinine 1.08 H Glucose 114 H Calcium 9.2 Liver Function 12/12/22 Range/Units 16:35 Total Bilirubin 0.2 (0.2-1.0) mg/dL AST 25 (15-37) U/L ALT 32 (14-59) U/L Alkaline Phosphatase 37 L (46-116) U/L Albumin 3.5 (3.4-5.0) g/dL Urine 12/12/22 Range/Units 17:15 Urine Color Lt. yellow (YELLOW) Urine Clarity Sl cloudy (CLEAR) Urine pH 6.0 (5.0-9.0) Ur Specific [place] 1.015 (1.005-1.025) Urine Protein Trace (NEG/TRACE) mg/dL Urine Glucose (UA) Negative (NEGATIVE) mg/dL Progress Note: A&P Assessment and Plan (1) Sepsis: Assessment and Plan: source of sepsis: Seems to be urinary tract aggressive fluid resuscitation empiric broad spectrum Abxs with consideration to patient's allergies probiotics while on ABxs trend lactate F/U Cxs and tailor Abxs accordingly consider an ID consult (2) Acute UTI: Assessment and Plan: As above (3) Atrial fibrillation with rapid ventricular response: Assessment and Plan: Patient received few doses of metoprolol IV in the emergency room as well as IV fluids and currently here rate is controlled. Continue with home dose of atenolol. (4) Dementia: Assessment and Plan: Patient is at risk for delirium. Avoid use of psychotropic medications. (5) Hypertension: Assessment and Plan: I am going to continue with home dose of atenolol. I am holding lisinopril for now since patient receiving aggressive fluid resuscitation to maintain her blood pressure. Reassess in the morning. Telemedicine Attestation Telemedicine Attestation I conducted this encounter from [[place]] via secure live, [id number] video conference with the patient, located at [facility] with [sepsis, urinary tract infection]. Prior to the interview, the risks and benefits of telemedicine were discussed with the patient and verbal consent was obtained. As the provider for the telehealth service, I attest that I introduced myself to the patient, provided my credentials, disclosed by location and determined that based on a review of the patient's chart and discussion with members of the patient's treatment team, telemedicine via real-time, 2 way, and interactive audio and video platform is an appropriate and effective means of providing the service. ?The patient and I mutually agree this visit is appropriate for telemedicine. ?The virtual encounter was taken place from? [place], [place]. ?The encounter took approximately 35 minutes. ?The nurse was present during the entire time and I was able to move the stethoscope in appropriate directions. ?The patient was evaluated at the Hospital ? Portions of this note may be dictated using [employer] voice recognition software. Variances in spelling and vocabulary are possible and unintentional. Not all errors may be caught and/or corrected. Please notify the author if any discrepancies are noted and/or if the meaning of any statement is unclear.? ? Patient verbally consented for treatment via video visit with patient currently located at [facility] and provider located in [place].
[2022-12-12] MEDS: CEFTRIAXONE 1,000 MG in 0.9 % SODIUM CHLORIDE 50 ML 100 MG IV (23:45)
[2022-12-13 05:15] VITALS: BP 138/70; PULSE 78; RESP 18; TEMP 37.1; O2SAT 93
[2022-12-13] MEDS: BUSPIRONE HCL 10 MG TABLET 5 MG PO ×4 (05:15→21:15)
[2022-12-13] MEDS: ACETAMINOPHEN 325 MG TABLET 650 MG PO (05:16)
[2022-12-13 05:18] LABS: Basophils Percent Auto 0.5 % (0.2-2.0); Eosinophils Absolute Auto 0.2 10^3/uL (0.0-0.7); Eosinophils Percent Auto 4.3 % (0.9-7.0); Hematocrit 36.2 % (36.0-48.0); Hemoglobin 12.1 g/dL (12.0-16.0); Immature Granulocytes Abs Auto 0.01 10^3/uL (0.00-0.03); Immature Granulocytes Pct Auto 0.2 % (0.0-0.5); Lymphocytes Absolute Auto 0.7 10^3/uL (1.2-3.8); Lymphocytes Percent Auto 12.4 % (20.5-60.0); Mean Corpuscular HGB Conc 33.4 g/dL (29.9-35.2); Mean Corpuscular Hemoglobin 32.8 pg (26.7-34.0); Mean Corpuscular Volume 98.1 fL (81.0-99.0); Mean Platelet Volume 10.9 fL (9.5-13.5); Monocytes Absolute Auto 0.5 10^3/uL (0.3-0.8); Monocytes Percent Auto 9.4 % (1.7-12.0); Neutrophils Absolute Auto 4.1 10^3/uL (1.4-6.5); Neutrophils Percent Auto 73.2 % (43.0-75.0); Platelet Count 134 10^3/uL (150-450); Red Blood Count 3.69 10^6/uL (4.20-5.40); Red Cell Distribution Width 12.8 % (11.0-15.0); White Blood Count 5.6 10^3/uL (4.0-11.0)
[2022-12-13 05:25] LABS: Anion Gap 10.6; BUN Creatinine Ratio 14.9; Calcium 8.2 mg/dL (8.5-10.1); Carbon Dioxide 23.5 mmol/L (21.0-32.0); Chloride 110 mmol/L (98-107); Estimated GFR (African America >60 (>=60); Estimated GFR (Non-African Ame >60 (>=60); Glucose 92 mg/dL (74-106); Potassium 4.1 mmol/L (3.5-5.1); Sodium 140 mmol/L (136-145)
[2022-12-13 05:27] LABS: Prealbumin 21.3 mg/dL (20.9-45.5)
[2022-12-13] MEDS: ATENOLOL 25 MG TABLET PO (08:24)
[2022-12-13] MEDS: L. ACIDOPHILUS/L.BULGARICUS 1 PACKET GRAN.PACK PO ×3 (08:24→17:36)
[2022-12-13] MEDS: OXYCODONE HCL 5 MG TABLET 10 MG PO ×2 (08:24→20:52)
[2022-12-13] MEDS: 0.9 % SODIUM CHLORIDE 1,000 ML 100 ML IV ×2 (09:49→20:54)
--- NOTE | 2022-12-13 11:26 | P.HP_ITS ---
H&P: HPI History of Present Illness Chief complaint: Weakness Narrative: 82 y/o female to ER with weakness. History of dementia and lives at home with daughter. Noticed increased weakness and not feeling well. Difficulty ambulating and hard to walk. To ER and found rapid afib. WBC normal but lactate elevated. UA with UTI. CTA normal. Admitted for treatment. Started IV fluids and rocephin. Remains tired and slightly confused this am. Review of Systems ROS Constitutional Denies: fever, chills or night sweats Cardiovascular Denies: chest pain, palpitations or edema Respiratory Denies: shortness of breath, cough or wheezing Gastrointestinal Denies: abdominal pain, nausea, vomiting or diarrhea Genitourinary Denies: painful urination PFSH [facility] Medical History (Updated 12/13/22 @ 08:52 by Sam Rodriguez MD) Surgical History (Updated 12/12/22 @ 21:17 by Esmer Sage) Family History (Updated 12/12/22 @ 21:07 by Esmer Sage) Father Family history of cancer Grandmother Family history of stroke Social History (Updated 12/12/22 @ 21:08 by Esmer Sage) Within the past year, how often did you have a drink containing alcohol: never Score interpretation: A score less than 3 is consistent with normal alcohol consumption. 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 Highest level of school completed/degree received: 11th grade Are you now , , , , never or living with a partner: In a typical week, how many times do you talk on the telephone with family, friends, or neighbors: 3 or more times per week How often do you get together with friends or relatives: 3 or more times per week How often do you attend restorationism or scientology services: never Do you belong to any clubs or organizations such as restorationism groups unions, fraternal or athletic groups, or school groups: no Total score: 1 Score interpretation: A score of less than or equal to 1 indicates the most socially isolated. Little interest or pleasure in doing things: not at all Feeling down, depressed, or hopeless: not at all Feel stressed/tense/nervous/anxious/difficulty sleeping: not at all Life stressors: recent of family or friend Do you think of yourself as: straight/heterosexual Gender Identity: female Meds Home Medications and Allergies Home Medications Medication Instructions Recorded Confirmed Type atenolol 25 mg tablet 25 mg PO Q24H 12/12/22 12/12/22 History buspirone 5 mg tablet 5 mg PO TID 12/12/22 12/12/22 History diazepam 5 mg tablet 5 mg PO BID 12/12/22 12/12/22 History lisinopril 20 mg tablet 20 mg PO DAILY 12/12/22 12/12/22 History meloxicam 7.5 mg tablet 7.5 mg PO DAILY 12/12/22 12/12/22 History oxycodone 10 mg tablet 10 mg PO Q12H 12/12/22 12/12/22 History Allergies Allergy/AdvReac Type Severity Reaction Status Date / Time No Known Drug Allergies Allergy Verified 12/12/22 15:41 Exam Constitutional Vital Signs - 24 hr 12/12/22 15:41 12/12/22 15:47 12/12/22 15:48 Temperature 99 F Pulse Rate 145 H 144 H Pulse Rate [Monitor] 145 H Respiratory Rate 20 21 15 Blood Pressure Blood Pressure [Right Arm] 93/76 Pulse Oximetry 95 96 Oxygen Delivery Method Room Air 12/12/22 15:49 12/12/22 16:48 12/12/22 17:00 Temperature Pulse Rate 137 H 132 H 139 H Pulse Rate [Monitor] Respiratory Rate 23 22 22 Blood Pressure 111/84 H 106/72 99/79 Blood Pressure [Right Arm] Pulse Oximetry 97 100 91 L Oxygen Delivery Method 12/12/22 17:15 12/12/22 17:15 12/12/22 17:30 Temperature Pulse Rate 131 H 132 H 132 H Pulse Rate [Monitor] Respiratory Rate 14 20 17 Blood Pressure 120/85 H 120/85 H 83/61 L Blood Pressure [Right Arm] Pulse Oximetry 94 L 95 95 Oxygen Delivery Method 12/12/22 17:45 12/12/22 18:01 12/12/22 18:02 Temperature Pulse Rate 135 H 133 H 134 H Pulse Rate [Monitor] Respiratory Rate 21 23 18 Blood Pressure 104/69 75/54 L 67/48 L Blood Pressure [Right Arm] Pulse Oximetry 84 L 95 97 Oxygen Delivery Method 12/12/22 18:03 12/12/22 18:20 12/12/22 18:23 Temperature Pulse Rate 137 H 137 H 138 H Pulse Rate [Monitor] Respiratory Rate 21 21 18 Blood Pressure 84/58 L 71/45 L 89/71 L Blood Pressure [Right Arm] Pulse Oximetry 95 94 L Oxygen Delivery Method 12/12/22 19:00 12/12/22 19:00 12/12/22 19:15 Temperature Pulse Rate 74 73 74 Pulse Rate [Monitor] Respiratory Rate 21 13 23 Blood Pressure 96/63 96/63 114/82 H Blood Pressure [Right Arm] Pulse Oximetry 93 L Oxygen Delivery Method 12/12/22 19:30 12/12/22 20:34 12/12/22 20:34 Temperature 97.7 F Pulse Rate 57 L Pulse Rate [Monitor] Respiratory Rate 20 Blood Pressure 126/59 H Blood Pressure [Right Arm] 122/60 H Pulse Oximetry 95 Oxygen Delivery Method Room Air Room Air 12/12/22 22:30 12/13/22 05:15 Temperature 98.8 F Pulse Rate 78 Pulse Rate [Monitor] Respiratory Rate 18 Blood Pressure Blood Pressure [Right Arm] 138/70 H Pulse Oximetry 93 L Oxygen Delivery Method Room Air Room Air Results Labs Labs: Short CBC 12/12/22 12/13/22 Range/Units 16:35 04:52 WBC 8.3 5.6 (4.0-11.0) 10^3/uL Hgb 13.4 12.1 (12.0-16.0) g/dL Hct 39.1 36.2 (36.0-48.0) % Plt Count 197 134 L (150-450) 10^3/uL BMP 12/12/22 12/13/22 16:35 04:52 Sodium 136 140 Potassium 4.6 4.1 Chloride 106 110 H Carbon Dioxide 21.4 23.5 BUN 17.0 13.0 Creatinine 1.08 H 0.87 Glucose 114 H 92 Calcium 9.2 8.2 L Liver Function 12/12/22 Range/Units 16:35 Total Bilirubin 0.2 (0.2-1.0) mg/dL AST 25 (15-37) U/L ALT 32 (14-59) U/L Alkaline Phosphatase 37 L (46-116) U/L Albumin 3.5 (3.4-5.0) g/dL Urine 12/12/22 Range/Units 17:15 Urine Color Lt. yellow (YELLOW) Urine Clarity Sl cloudy (CLEAR) Urine pH 6.0 (5.0-9.0) Ur Specific [place] 1.015 (1.005-1.025) Urine Protein Trace (NEG/TRACE) mg/dL Urine Glucose (UA) Negative (NEGATIVE) mg/dL Imaging CT scan - chest: Attestation: I have reviewed the pertinent imaging results. Assessment and Plan Assessment and Plan (1) Sepsis: (2) Acute UTI: (3) Atrial fibrillation with rapid ventricular response: (4) Dementia: (5) Hypertension: Plan 1. UTI 2. Sepsis 3. Afib with RVR 4. HTN 5. Senile dementia Continue rocephin and await cultures. Resumed home medication and monitor vitals. Start PT/OT for weakness. Continue IV fluids and increase PO intake. Patient will need greater than 2 midnights in the hospital.
--- NOTE | 2022-12-13 12:08 | CM.NOTE ---
Rounds made with Dr. Rodriguez, no discharge today. PT and OT to evaluate pt today and will follow for any discharge needs.
--- NOTE | 2022-12-13 13:05 | CM.NOTE ---
Important Message From Medicare discussed with pt, pt verbalizes understanding and signs paper. Original given to pt and copy placed on pt's chart.
[2022-12-13 13:30] VITALS: BMI 30.2
[2022-12-13 14:00] VITALS: BP 90/56; PULSE 63; RESP 18; TEMP 36.7; O2SAT 92
[2022-12-13 19:28] VITALS: BP 122/56; PULSE 85; RESP 18; TEMP 37.2; O2SAT 94
[2022-12-13] MEDS: TEMAZEPAM 15 MG CAPSULE PO (20:54)
[2022-12-13] MEDS: CEFTRIAXONE 1,000 MG in 0.9 % SODIUM CHLORIDE 50 ML 100 MG IV (22:26)
[2022-12-14 04:05] VITALS: BP 150/80; PULSE 66; RESP 18; TEMP 36.7; O2SAT 91
[2022-12-14 04:53] LABS: Basophils Absolute Auto 0.1 10^3/uL (0.0-0.1); Basophils Percent Auto 0.9 % (0.2-2.0); Eosinophils Absolute Auto 0.4 10^3/uL (0.0-0.7); Eosinophils Percent Auto 6.4 % (0.9-7.0); Hematocrit 35.8 % (36.0-48.0); Hemoglobin 11.6 g/dL (12.0-16.0); Immature Granulocytes Abs Auto 0.01 10^3/uL (0.00-0.03); Immature Granulocytes Pct Auto 0.2 % (0.0-0.5); Lymphocytes Absolute Auto 1.2 10^3/uL (1.2-3.8); Lymphocytes Percent Auto 20.1 % (20.5-60.0); Mean Corpuscular HGB Conc 32.4 g/dL (29.9-35.2); Mean Corpuscular Volume 98.9 fL (81.0-99.0); Mean Platelet Volume 11.2 fL (9.5-13.5); Monocytes Absolute Auto 0.7 10^3/uL (0.3-0.8); Monocytes Percent Auto 11.4 % (1.7-12.0); Neutrophils Absolute Auto 3.5 10^3/uL (1.4-6.5); Platelet Count 141 10^3/uL (150-450); Red Blood Count 3.62 10^6/uL (4.20-5.40); Red Cell Distribution Width 12.8 % (11.0-15.0); White Blood Count 5.8 10^3/uL (4.0-11.0)
[2022-12-14 05:03] LABS: Anion Gap 9.3; BUN Creatinine Ratio 14.9; Calcium 8.1 mg/dL (8.5-10.1); Carbon Dioxide 21.9 mmol/L (21.0-32.0); Chloride 114 mmol/L (98-107); Estimated GFR (African America >60 (>=60); Estimated GFR (Non-African Ame 57 (>=60); Glucose 91 mg/dL (74-106); Potassium 4.2 mmol/L (3.5-5.1); Sodium 141 mmol/L (136-145)
[2022-12-14] MEDS: BUSPIRONE HCL 10 MG TABLET 5 MG PO ×3 (06:18→20:52)
[2022-12-14] MEDS: 0.9 % SODIUM CHLORIDE 1,000 ML 100 ML IV ×2 (06:19→16:21)
[2022-12-14] MEDS: OXYCODONE HCL 5 MG TABLET 10 MG PO ×2 (08:41→20:52)
[2022-12-14] MEDS: L. ACIDOPHILUS/L.BULGARICUS 1 PACKET GRAN.PACK PO ×3 (08:41→16:21)
[2022-12-14] MEDS: ATENOLOL 25 MG TABLET PO (08:41)
--- NOTE | 2022-12-14 11:09 | REH.PTDLY ---
Physical Therapy Daily Note PT Daily Note/Assess Start: 12/14/22 10:44 Freq: Status: Active Protocol: Document 12/14/22 10:44 [facility] (Rec: 12/14/22 10:55 BOSTON [id number]) Physical Therapy Daily Note/Assessment Time In 09:55 Time Out 10:20 Subjective Pt complains of L hip pain sitting in chair and wants to get back to bed soon. Therapeutic Exercise Minutes (minutes) 15 Therapeutic Exercise Units 1 Therapeutic Exercise Treatment Instructed pt in B LE seated exs 10x ea with legs elevated. Exs included AP, QS, hip abd slides, heel slides, and SLR. AA needed for larger ROM. Pt very tight or guarded at hips. Also performed seated LAQ , marching, hip abd step outs 10x ea. Cues for pt to scoot back into chair and this helps the pain in her L hip. Total Therapy Minutes 15 Total Physical Therapy Units 1 Daily Note Summary Progressed with seated exs with AA needed as pt performs within small ROM. Nurses aide prefers pt stay up in chair until after lunch, pt agreeable now that hip is not hurting.
--- NOTE | 2022-12-14 11:27 | SWNOTE1 ---
SW met with pt and daughter in room. Pt was alert and knew where she was, but did show moments of confusion. Daughter and pt answered questions together. Pt lives at home with her daughter, she uses a wheelchair and has walker as well. There is another daughter as well. Doctor spoke with her and daughter in depth about going to rehab to get stronger. At this time pt is agreeable and daughter does feel she needs to get stronger. They would like the [place] [facility]. Referral sent. Pt's daughter did ask about respit care, SW did let her know it is out of pocket if they do ever need it.
[2022-12-14 13:26] VITALS: BP 134/78; PULSE 56; RESP 16; TEMP 36.4; O2SAT 95
--- NOTE | 2022-12-14 14:52 | SWNOTE1 ---
[facility] received phone call from [facility] and they are able to accept, they only have semi-private rooms available. [facility] called and spoke with daughter and she is alright with this. [facility] let [facility] know. Plan is for discharge tomorrow.
[2022-12-14] MEDS: LORAZEPAM 0.5 MG TABLET PO (16:23)
--- NOTE | 2022-12-14 18:41 | PM.PN ---
Progress Note: Subjective Subjective Interval history: Patient improved overnight. More alert and not as confused. Continues to have severe weakness and difficulty ambulating and with transfers. Afebrile. Normal appetite and no emesis or diarrhea. No chesrt pain or palpitations. No SOB or cough. Exam Constitutional Vital Signs - 24 hr 12/13/22 19:28 12/13/22 19:28 12/14/22 04:05 Temperature 98.9 F 98.1 F Pulse Rate 85 66 Respiratory Rate 18 18 18 Blood Pressure [Left Arm] 122/56 H 150/80 H Blood Pressure [Right Arm] Pulse Oximetry 94 L 91 L Oxygen Delivery Method Room Air Room Air 12/14/22 13:26 Temperature 97.5 F L Pulse Rate 56 L Respiratory Rate 16 Blood Pressure [Left Arm] Blood Pressure [Right Arm] 134/78 H Pulse Oximetry 95 Oxygen Delivery Method Room Air Documenting provider has reviewed patient's vital signs: yes Common normals: no apparent distress, oriented x3 and alert HENMT Common normals: normocephalic Eye Common normals: PERRL and EOMs intact bilaterally Respiratory Common normals: clear to auscultation bilaterally Cardio Common normals: regular rate, regular rhythm, no gallops, no murmurs and no rub GI Common normals: Normal to inspection, nondistended, normoactive bowel sounds present and non-tender Extremity General: no edema Progress Note: Objective Labs Labs: Short CBC 12/14/22 Range/Units 04:25 WBC 5.8 (4.0-11.0) 10^3/uL Hgb 11.6 L (12.0-16.0) g/dL Hct 35.8 L (36.0-48.0) % Plt Count 141 L (150-450) 10^3/uL BMP 12/14/22 04:25 Sodium 141 Potassium 4.2 Chloride 114 H Carbon Dioxide 21.9 BUN 14.0 Creatinine 0.94 Glucose 91 Calcium 8.1 L Progress Note: A&P Assessment and Plan (1) Acute UTI: (2) Sepsis: (3) Atrial fibrillation with rapid ventricular response: (4) Hypertension: (5) Dementia: Plan Patient improved and continue antibiotics and fluids. Urine culture pending. Continue PT/OT for weakness. Likely will need SNF upon discharge.
[2022-12-14 19:31] VITALS: RESP 16
[2022-12-14 20:30] VITALS: BP 149/87; PULSE 71; RESP 18; TEMP 36.6; O2SAT 93
[2022-12-14] MEDS: TEMAZEPAM 15 MG CAPSULE PO (20:53)
[2022-12-14] MEDS: CEFTRIAXONE 1,000 MG in 0.9 % SODIUM CHLORIDE 50 ML 100 MG IV (22:24)
[2022-12-15] MEDS: 0.9 % SODIUM CHLORIDE 1,000 ML 100 ML IV (03:12)
[2022-12-15 05:09] VITALS: BP 155/74; PULSE 68; RESP 18; TEMP 37.3; O2SAT 91
[2022-12-15] MEDS: BUSPIRONE HCL 10 MG TABLET 5 MG PO (05:19)
[2022-12-15 05:29] LABS: Basophils Percent Auto 0.7 % (0.2-2.0); Eosinophils Absolute Auto 0.4 10^3/uL (0.0-0.7); Eosinophils Percent Auto 6.2 % (0.9-7.0); Hematocrit 36.4 % (36.0-48.0); Hemoglobin 11.6 g/dL (12.0-16.0); Immature Granulocytes Abs Auto 0.01 10^3/uL (0.00-0.03); Immature Granulocytes Pct Auto 0.2 % (0.0-0.5); Lymphocytes Absolute Auto 1.3 10^3/uL (1.2-3.8); Mean Corpuscular HGB Conc 31.9 g/dL (29.9-35.2); Mean Corpuscular Hemoglobin 31.4 pg (26.7-34.0); Mean Corpuscular Volume 98.6 fL (81.0-99.0); Mean Platelet Volume 10.8 fL (9.5-13.5); Monocytes Absolute Auto 0.6 10^3/uL (0.3-0.8); Monocytes Percent Auto 10.6 % (1.7-12.0); Neutrophils Absolute Auto 3.4 10^3/uL (1.4-6.5); Neutrophils Percent Auto 60.3 % (43.0-75.0); Platelet Count 132 10^3/uL (150-450); Red Blood Count 3.69 10^6/uL (4.20-5.40); Red Cell Distribution Width 12.6 % (11.0-15.0); White Blood Count 5.7 10^3/uL (4.0-11.0)
[2022-12-15 05:52] LABS: Anion Gap 10.9; BUN Creatinine Ratio 10.1; Calcium 8.1 mg/dL (8.5-10.1); Carbon Dioxide 21.2 mmol/L (21.0-32.0); Chloride 113 mmol/L (98-107); Estimated GFR (African America >60 (>=60); Estimated GFR (Non-African Ame >60 (>=60); Glucose 94 mg/dL (74-106); Potassium 4.1 mmol/L (3.5-5.1); Sodium 141 mmol/L (136-145)
[2022-12-15 07:58] VITALS: RESP 16
[2022-12-15] MEDS: L. ACIDOPHILUS/L.BULGARICUS 1 PACKET GRAN.PACK PO (08:04)
[2022-12-15] MEDS: OXYCODONE HCL 5 MG TABLET 10 MG PO (08:04)
[2022-12-15] MEDS: ATENOLOL 25 MG TABLET PO (08:05)
--- NOTE | 2022-12-15 11:31 | CM.NOTE ---
Rounds made with Dr. Rodriguez, pt will discharge to [place] today for skilled therapy.
--- NOTE | 2022-12-15 11:36 | SWNOTE1 ---
Pt is ready for discharge today, she is going to [facility] skilled. SW sent over dc orders, completed HENS, and updated packet. [facility] called and set up trips for 1-1:30, SW notified daughter, [facility], and nursing of time.
[2022-12-15 12:06] VITALS: BP 138/79; PULSE 58; RESP 18; TEMP 36.6; O2SAT 94
--- NOTE | 2022-12-15 12:19 | PM.DS1 ---
DS: Providers Provider Date of admission: 12/12/22 22:32 Primary care physician: AMEENA PARKER Consults: 12/13/22 08:51 Occupational Therapy Eval and Treat Routine Physical Therapy Eval and Treat Routine DS: Diagnosis Discharge Diagnosis (1) Acute UTI: (2) Sepsis: (3) Atrial fibrillation with rapid ventricular response: (4) Hypertension: (5) Dementia: DS: Summary Hospital Course Hospital Course: Reason for admission: See H&P for details. 82 y/o female to ER with weakness.? History of dementia and lives at home with daughter.? Noticed increased weakness and not feeling well.? Difficulty ambulating and hard to walk.? To ER and found rapid afib.? WBC normal but lactate elevated.? UA with UTI.? CTA normal.? Admitted for treatment.? Hospital course: Started IV fluids and rocephin.? Started PT/OT for weakness. Initially confused but improved with treatment. Labs stable. Resumed home medication. Continued to have difficulty ambulating and PT recommended SNF. Family looked at facilities and picked a SNF. Transferred to SNF in stable condition. Will continue cefdinir x 10 days for UTI. Resume home medication as directed. Time Spent with Patient Time attestation: Total time spent providing and/or coordinating discharge services: Exam Constitutional Vital Signs - 24 hr 12/14/22 13:26 12/14/22 19:31 12/14/22 20:30 Temperature 97.5 F L 97.9 F Pulse Rate 56 L 71 Respiratory Rate 16 16 18 Blood Pressure [Left Arm] 149/87 H Blood Pressure [Right Arm] 134/78 H Pulse Oximetry 95 93 L Oxygen Delivery Method Room Air Room Air 12/15/22 05:09 12/15/22 07:58 12/15/22 12:06 Temperature 99.2 F 97.9 F Pulse Rate 68 58 L Respiratory Rate 18 16 18 Blood Pressure [Left Arm] 138/79 H Blood Pressure [Right Arm] 155/74 H Pulse Oximetry 91 L 94 L Oxygen Delivery Method Room Air Documenting provider has reviewed patient's vital signs: yes Common normals: no apparent distress, oriented x3 and alert HENMT Common normals: normocephalic Eye Common normals: PERRL and EOMs intact bilaterally Respiratory Common normals: clear to auscultation bilaterally Cardio Common normals: regular rate, regular rhythm, no gallops, no murmurs and no rub GI Common normals: Normal to inspection, nondistended, normoactive bowel sounds present and non-tender Extremity General: no edema DS: Data Data Completed and Pending Labs on day of discharge: Labs from last 24 hours 12/15/22 05:05 WBC 5.7 RBC 3.69 L Hgb 11.6 L Hct 36.4 MCV 98.6 MCH 31.4 MCHC 31.9 RDW 12.6 Plt Count 132 L MPV 10.8 Neut % (Auto) 60.3 Lymph % (Auto) 22.0 [place] % (Auto) 10.6 Eos % (Auto) 6.2 Baso % (Auto) 0.7 Neut # (Auto) 3.4 Lymph # (Auto) 1.3 [place] # (Auto) 0.6 Eos # (Auto) 0.4 Baso # (Auto) 0.0 Abs Immat Gran (auto) 0.01 Imm/Tot Granulo (auto) 0.2 Sodium 141 Potassium 4.1 Chloride 113 H Carbon Dioxide 21.2 Anion Gap 10.9 BUN 9.0 Creatinine 0.89 Est GFR ( Amer) >60 Est GFR (Non-Af Amer) >60 BUN/Creatinine Ratio 10.1 Glucose 94 Calcium 8.1 L Preliminary micro results at discharge 12/12/22 16:35 Blood Culture Result 1 - Preliminary Blood NO GROWTH AT 36-48 HOURS. FINAL TO FOLLOW. 12/12/22 16:39 Blood Culture Result 1 - Preliminary Blood NO GROWTH AT 36-48 HOURS. FINAL TO FOLLOW. 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
--- NOTE | 2022-12-15 14:05 | PC.NURSE ---
Arnold catheter, AC IV, and Forearm IV all discontinued at 12:50. Patient tolerated well. 1200ml of yellow clear urine was in the arnold bag.
== END 2022-12-15 12:59 | DRG 872 ==
LOC: ER 19:34 → MS 22:30
PROVIDERS: Emergency Medicine Emergency Medical Services; Admitting Provider Internal Medicine; Emergency Provider Emergency Medicine; PCP Physician Assistant; Visit Provider Family Medicine
DX: A41.9 Sepsis, unspecified organism (principal); N39.0 Urinary tract infection, site not specified; I48.20 Chronic atrial fibrillation, unspecified; F03.90 Unspecified dementia, unspecified severity, without behavioral disturbance, psychotic disturbance, mood disturbance, and anxiety; I50.9 Heart failure, unspecified; I25.10 Atherosclerotic heart disease of native coronary artery without angina pectoris; I11.0 Hypertensive heart disease with heart failure; Z82.3 Family history of stroke; Z80.9 Family history of malignant neoplasm, unspecified; Z87.891 Personal history of nicotine dependence; Z79.1 Long term (current) use of non-steroidal anti-inflammatories (NSAID); Z79.899 Other long term (current) drug therapy
CPT/HCPCS: 36415; 71045; 71275; 80048; 80053; 81003; 81015; 83605; 83880; 84134; 84443; 84484; 85025; 85378; 87040; 87086; 93005; 96365; 96366; 96367; 96375; 96376; 97110; 97163; 97165; 97535; 99285; Q3014; Q9967

== ENCOUNTER 2023-01-11 05:12 | Observation (INO) | payer MEDICARE, OTHER, SELFPAY ==
[2023-01-11] VITALS (34 sets, daily range): BP systolic 68–104; BP diastolic 48–73; PULSE 70–141; RESP 16–31; TEMP 35.9–37.3; O2SAT 51–98; BMI 36.7; BMI 24.9
--- NOTE | 2023-01-11 05:20 | ECG_ITS ---
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
--- NOTE | 2023-01-11 05:23 | ED_ITS ---
HPI - GI Bleed General Chief complaint: GI Bleed Stated complaint: GI BLEED Time Seen by Provider: 01/11/23 05:20 Source: other Source comment: NH report Mode of arrival: ambulance Limitations: other (Hx dementia) Limitations comment: hx dementia History of Present Illness HPI Narrative: This 82-year-old female was transferred from the [facility] where s he currently resides for evaluation of lower gastrointestinal bleeding. The patient was changed this morning and was found that she had bright red blood in her diaper. She has a history of dementia and is unable to provide any additional information. On review of her medications, she is not on any blood thinners Code status is DNR CC complaint: Reports gross hematochezia Related Data Home Medications Medication Instructions Recorded Confirmed atenolol 25 mg tablet 25 mg PO QDAY 12/12/22 01/11/23 buspirone 5 mg tablet 5 mg PO TID 12/12/22 01/11/23 diazepam 5 mg tablet 5 mg PO BID 12/12/22 01/11/23 lisinopril 20 mg tablet 20 mg PO DAILY 12/12/22 01/11/23 meloxicam 7.5 mg tablet 7.5 mg PO DAILY 12/12/22 01/11/23 escitalopram oxalate 10 mg tablet 10 mg PO DAILY 01/11/23 01/11/23 (Lexapro) oxycodone 10 mg tablet 10 mg PO Q12H 01/11/23 01/11/23 sennosides 8.6 mg tablet (senna) 8.6 mg PO DAILY 01/11/23 01/11/23 Previous Rx's Medication Instructions Recorded cefdinir 300 mg capsule 300 mg PO BID 10 days #20 caps 12/15/22 Allergies Allergy/AdvReac Type Severity Reaction Status Date / Time No Known Drug Allergies Allergy Verified 01/11/23 05:21 Review of Systems ROS Status of ROS 10 or more systems reviewed and unremarkable except as noted in history and below PFSH [facility] Medical History Surgical History (Updated 12/12/22 @ 21:17 by Esmer Sage) Family History (Updated 12/12/22 @ 21:07 by Esmer Sage) Father Family history of cancer Grandmother Family history of stroke Social History (Updated 12/12/22 @ 21:08 by Esmer Sage) Within the past year, how often did you have a drink containing alcohol: never Score interpretation: A score less than 3 is consistent with normal alcohol consumption. 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 Highest level of school completed/degree received: 11th grade Are you now , , , , never or living with a partner: In a typical week, how many times do you talk on the telephone with family, friends, or neighbors: 3 or more times per week How often do you get together with friends or relatives: 3 or more times per week How often do you attend confucianism or adventist services: never Do you belong to any clubs or organizations such as confucianism groups unions, [employer] or athletic groups, or school groups: no Total score: 1 Score interpretation: A score of less than or equal to 1 indicates the most socially isolated. Little interest or pleasure in doing things: not at all Feeling down, depressed, or hopeless: not at all Feel stressed/tense/nervous/anxious/difficulty sleeping: not at all Life stressors: recent of family or friend Do you think of yourself as: straight/heterosexual Gender Identity: female Exam Narrative Exam Narrative: Nurses note and vital signs reviewed; pt is hypotensive and tachycardic, she is confused and aggressive at times, no resp distress General: Pale, agitated eldlerly female, no resp distress Skin: Warm, dry, no pallor noted. There is no rash noted. Head: Normocephalic, atraumatic Eye: Normal conjunctiva, no drainage, EOMI. PERRL Ears, Nose, Mouth, and Throat: oral mucosa is moist Cardiovascular: Regular Rate and Rhythm S1S2 Respiratory: Patient is in no distress, no accessory muscle use, lungs are clear to auscultation, no wheezing, rales or rhonchi Back: non-tender, no CVA tenderness bilaterally to percussion. GI: Obese, soft, non-distended, no appreciable tenderness to deep palpation; large amount of bright red blood in diaper, no notable rectal masses or hemorrhoids Musculoskeletal: The patient has no evidence of calf tenderness, no pitting edema, symmetrical pulses noted bilaterally Neurological: A&O x4, normal speech Psychiatric: agitated, poorly cooperative Constitutional Vital Signs, click to edit/add: Last Vital Signs Temp 97.7 F 01/11/23 21:52 Pulse 135 H 01/11/23 21:52 Resp 20 01/11/23 21:52 BP 102/62 01/11/23 21:52 Pulse Ox 95 01/12/23 04:21 O2 Del Method Room Air 01/12/23 04:21 Course Vital Signs Vital signs: Vital Signs Temperature 99.2 F 01/11/23 05:15 Pulse Rate 140 H 01/11/23 05:15 Respiratory Rate 16 01/11/23 05:15 Blood Pressure 79/62 L 01/11/23 05:15 Pulse Oximetry 98 01/11/23 05:15 Temperature 97.7 F 01/11/23 21:52 Pulse Rate 135 H 01/11/23 21:52 Respiratory Rate 20 01/11/23 21:52 Blood Pressure 102/62 01/11/23 21:52 Pulse Oximetry 95 01/12/23 04:21 Oxygen Delivery Method Room Air 01/12/23 04:21 MDM - GI Bleed MDM Narrative Medical decision making narrative: This 82-year-old female was brought to the emergency department by EMS from the [facility] where she currently resides for evaluation of gastrointestinal bleeding. She was being changed this morning it was noted that she had a large amount of blood in her diaper. He has a history of dementia. Her daughter came to the emergency department shortly after she arrived tonight discussed her current condition with her. Her code status is DNR comfort care but the daughter states that she wishes to have everything done at this time including possibly blood. The patient was noted to have a moderately low blood pressure and was tachycardic. An IV was placed and she was given IV fluids, Pepcid and Protonix. Routine labs and a CT scan of the abdomen and pelvis are ordered. At the time of my shift ending her hemoglobin was noted to be 14.9. There was no active bleeding. The patient was signed out to Dr. Bailey for further evaluation and treatment. Lab Data Labs: Lab Results 01/11/23 01/11/23 Range/Units 05:29 07:54 WBC 11.2 H (4.0-11.0) 10^3/uL RBC 4.49 (4.20-5.40) 10^6/uL Hgb 14.1 (12.0-16.0) g/dL Hct 44.4 (36.0-48.0) % MCV 98.9 (81.0-99.0) fL MCH 31.4 (26.7-34.0) pg MCHC 31.8 (29.9-35.2) g/dL RDW 12.6 (11.0-15.0) % Plt Count 171 (150-450) 10^3/uL MPV 11.9 (9.5-13.5) fL Neut % (Auto) 70.9 (43.0-75.0) % Lymph % (Auto) 16.2 L (20.5-60.0) % [place] % (Auto) 10.2 (1.7-12.0) % Eos % (Auto) 1.7 (0.9-7.0) % Baso % (Auto) 0.6 (0.2-2.0) % Neut # (Auto) 7.9 H (1.4-6.5) 10^3/uL Lymph # (Auto) 1.8 (1.2-3.8) 10^3/uL [place] # (Auto) 1.1 H (0.3-0.8) 10^3/uL Eos # (Auto) 0.2 (0.0-0.7) 10^3/uL Baso # (Auto) 0.1 (0.0-0.1) 10^3/uL Abs Immat Gran (auto) 0.04 H (0.00-0.03) 10^3/uL Imm/Tot Granulo (auto) 0.4 (0.0-0.5) % Sodium 138 (136-145) mmol/L Potassium 4.6 (3.5-5.1) mmol/L Chloride 105 (98-107) mmol/L Carbon Dioxide 24.1 (21.0-32.0) mmol/L Anion Gap 13.5 BUN 58.0 H (7.0-18.0) mg/dL Creatinine 2.04 H (0.55-1.02) mg/dL Est GFR ( Amer) 28 L (>=60) Est GFR (Non-Af Amer) 23 L (>=60) BUN/Creatinine Ratio 28.4 Glucose 113 H (74-106) mg/dL Lactate 1.3 (0.4-2.0) mmol/L Calcium 9.1 (8.5-10.1) mg/dL Total Bilirubin 0.7 (0.2-1.0) mg/dL AST 18 (15-37) U/L ALT <6 L (14-59) U/L Alkaline Phosphatase 44 L (46-116) U/L Troponin I High Sens 1561.1 H* 1941.6 H* (4.0-51.3) pg/mL Total Protein 7.2 (6.4-8.2) g/dL Albumin 3.7 (3.4-5.0) g/dL Globulin 3.5 g/dL Albumin/Globulin Ratio 1.1 Blood Type B Negative Antibody Screen Negative ECG Data Attestation: I personally reviewed and interpreted this ECG as follows: (Sinus tachycardia at 139 beats for minute, normal axis, nonspecific ST changes, no acute ST segment elevation or T-wave inversion) Critical Care Time Critical Care Time Critical Care Time: Yes Total Critical Care Time: 45 Attestation: pt was signed out to Dr Bailey at shift change Discharge Plan Discharge Chief Complaint: GI Bleed Clinical Impression: Gastrointestinal bleed, Myocardial infarction, Breast mass in female Patient Disposition: Admitted as Observation Time of Disposition Decision: 09:33 Condition: Serious Discharge Date/Time: 01/11/23 09:35
[2023-01-11 05:34] LABS: Basophils Absolute Auto 0.1 10^3/uL (0.0-0.1); Basophils Percent Auto 0.6 % (0.2-2.0); Eosinophils Absolute Auto 0.2 10^3/uL (0.0-0.7); Eosinophils Percent Auto 1.7 % (0.9-7.0); Hematocrit 44.4 % (36.0-48.0); Hemoglobin 14.1 g/dL (12.0-16.0); Immature Granulocytes Abs Auto 0.04 10^3/uL (0.00-0.03); Immature Granulocytes Pct Auto 0.4 % (0.0-0.5); Lymphocytes Absolute Auto 1.8 10^3/uL (1.2-3.8); Lymphocytes Percent Auto 16.2 % (20.5-60.0); Mean Corpuscular HGB Conc 31.8 g/dL (29.9-35.2); Mean Corpuscular Hemoglobin 31.4 pg (26.7-34.0); Mean Corpuscular Volume 98.9 fL (81.0-99.0); Mean Platelet Volume 11.9 fL (9.5-13.5); Monocytes Absolute Auto 1.1 10^3/uL (0.3-0.8); Monocytes Percent Auto 10.2 % (1.7-12.0); Neutrophils Absolute Auto 7.9 10^3/uL (1.4-6.5); Neutrophils Percent Auto 70.9 % (43.0-75.0); Platelet Count 171 10^3/uL (150-450); Red Blood Count 4.49 10^6/uL (4.20-5.40); Red Cell Distribution Width 12.6 % (11.0-15.0); White Blood Count 11.2 10^3/uL (4.0-11.0)
[2023-01-11 05:49] LABS: Alanine Aminotransferase <6 U/L (14-59); Albumin Globulin Ratio 1.1; Albumin Level 3.7 g/dL (3.4-5.0); Alkaline Phosphatase 44 U/L (46-116); Anion Gap 13.5; Aspartate Amino Transferase 18 U/L (15-37); BUN Creatinine Ratio 28.4; Bilirubin Total 0.7 mg/dL (0.2-1.0); Calcium 9.1 mg/dL (8.5-10.1); Carbon Dioxide 24.1 mmol/L (21.0-32.0); Chloride 105 mmol/L (98-107); Estimated GFR (African America 28 (>=60); Estimated GFR (Non-African Ame 23 (>=60); Globulin 3.5 g/dL; Glucose 113 mg/dL (74-106); Potassium 4.6 mmol/L (3.5-5.1); Sodium 138 mmol/L (136-145); Total Protein 7.2 g/dL (6.4-8.2)
[2023-01-11 05:52] LABS: Lactate/Lactic Acid 1.3 mmol/L (0.4-2.0)
[2023-01-11] MEDS: PANTOPRAZOLE SODIUM 40 MG VIAL IV (06:03)
[2023-01-11] MEDS: FAMOTIDINE/PF 20 MG/2 ML VIAL IV (06:03)
[2023-01-11] MEDS: 0.9 % SODIUM CHLORIDE 1,000 ML 125 ML IV (06:03)
[2023-01-11] MEDS: 0.9 % SODIUM CHLORIDE 500 ML IV (06:05)
--- NOTE | 2023-01-11 06:27 | ECG_ITS ---
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
--- NOTE | 2023-01-11 06:49 | XR_ITS ---
The [address] [address] Patient Name: PEDRO HENSLEY MRN: [id number] date: 1940 Sex: F Assigned Patient Location: ER Current Patient Location: ER Accession/Order Number: [id number] Exam Date: 01/11/2023 06:50 Report Date: 01/11/2023 07:16 At the request of: ADEEL MARKER Procedure: XR chest 1V EXAM: XR chest 1V HISTORY: hypoxia COMPARISON: CT and x-ray of 12/12/2022. TECHNIQUE: Chest X-ray, 1 view. FINDINGS: Limited positioning due to patient condition. Support devices: None. Lungs/pleura: No consolidation, effusion, or pneumothorax. Minimal bibasilar linear opacities are similar prior examination. Low lung volumes. Heart and mediastinum: Stable contours compared to prior examination. Bones: No acute abnormality identified. XR/XR chest 1V IMPRESSION: Limited examination due to patient condition. Minimal linear bibasilar opacities are similar prior examination, favored represent atelectasis over infiltrate. Electronically authenticated by: DENNISE TAVARES Date: 01/11/2023 07:16
[2023-01-11] MEDS: 0.9 % SODIUM CHLORIDE 1,000 ML 1000 ML IV (07:05)
--- NOTE | 2023-01-11 07:50 | CT_ITS ---
[address] [address] Patient Name: PEDRO HENSLEY MRN: [id number] date: 1940 Sex: F Assigned Patient Location: ER Current Patient Location: Accession/Order Number: [id number] Exam Date: 01/11/2023 07:55 Report Date: 01/11/2023 08:29 At the request of: ADEEL MARKER Procedure: CT abdomen pelvis wo con EXAMINATION: CT abdomen pelvis wo con HISTORY: Gi bleed COMPARISON: No relevant comparison available. TECHNIQUE: Axial, Coronal, and Sagittal images were obtained without and/or with IV contrast as indicated by examination type. Dose reduction techniques were achieved by using automated exposure control and/or adjustment of mA and/or kV according to patient size and/or use of iterative reconstruction technique. FINDINGS: LUNG BASES: No visible pulmonary or pleural disease. LIVER: No enlargement, atrophy, suspicious density, or significant focal lesion. BILIARY: Several large stones within noninflamed gallbladder. PANCREAS: No lesion, fluid collection, or abnormal duct dilatation. SPLEEN: No enlargement or focal lesion. ADRENALS: No mass or enlargement. KIDNEYS: Numerous large and small nonobstructing stones within kidneys. BOWEL/MESENTERY: Large amount stool within rectal vault; moderate amount through out remainder of colon. No visible mass, obstruction, or bowel wall thickening. AORTA/VASCULAR: No aneurysm or dissection. RETROPERITONEUM: No mass or adenopathy. LYMPH NODES: No adenopathy. URINARY BLADDER: No visible focal wall thickening, lesion, or calculus. PELVIC ORGANS: Hysterectomy. ABDOMINAL WALL: 4.6 cm rounded mass within inferior aspect of right breast. BONES: Advanced degenerative changes of the hip joints, left greater than right, with bone remodeling on left. OTHER: Negative. CT/CT abdomen pelvis wo con IMPRESSION: 1.Large stool ball within rectal vault; possible fecal impaction. No mass, wall thickening, or inflammatory changes to account for patient's symptoms. 2. Cholelithiasis. 3. Bilateral nonobstructing nephrolithiasis. 4.Large 4.6 cm mass within inferior aspect of right breast concerning for neoplasm. 5.Advanced degenerative changes of the hip joints. Electronically authenticated by: WILLOW TORO Date: 01/11/2023 08:29
[2023-01-11] MEDS: MORPHINE SULFATE 2 MG/ML SYRINGE IV (09:22)
--- NOTE | 2023-01-11 09:22 | ED.GENADUL1 ---
HPI - General Adult General Chief complaint: GI Bleed Stated complaint: GI BLEED Time Seen by Provider: 01/11/23 05:20 Source: other Source information: NH report Mode of arrival: ambulance Limitations: other (Hx dementia) Limitations comment: - History of Present Illness HPI narrative: please see Dr. Maravilla's full history and physical Related Data Home Medications Medication Instructions Recorded Confirmed atenolol 25 mg tablet 25 mg PO Q24H 12/12/22 12/12/22 buspirone 5 mg tablet 5 mg PO TID 12/12/22 12/12/22 diazepam 5 mg tablet 5 mg PO BID 12/12/22 12/12/22 lisinopril 20 mg tablet 20 mg PO DAILY 12/12/22 12/12/22 meloxicam 7.5 mg tablet 7.5 mg PO DAILY 12/12/22 12/12/22 escitalopram oxalate 10 mg tablet 10 mg PO DAILY 01/11/23 01/11/23 (Lexapro) sennosides 8.6 mg tablet (senna) 8.6 mg PO DAILY 01/11/23 01/11/23 Previous Rx's Medication Instructions Recorded cefdinir 300 mg capsule 300 mg PO BID 10 days #20 caps 12/15/22 oxycodone 10 mg tablet 10 mg PO Q12H 5 days #10 tabs 12/15/22 Allergies Allergy/AdvReac Type Severity Reaction Status Date / Time No Known Drug Allergies Allergy Verified 01/11/23 05:21 [facility] Medical History (Updated 01/11/23 @ 09:34 by Giovani Bailey MD) Surgical History (Updated 12/12/22 @ 21:17 by Esmer Sage) Family History (Updated 12/12/22 @ 21:07 by Esmer Sage) Father Family history of cancer Grandmother Family history of stroke Social History (Updated 12/12/22 @ 21:08 by Esmer Sage) Within the past year, how often did you have a drink containing alcohol: never Score interpretation: A score less than 3 is consistent with normal alcohol consumption. 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 Highest level of school completed/degree received: 11th grade Are you now , , , , never or living with a partner: In a typical week, how many times do you talk on the telephone with family, friends, or neighbors: 3 or more times per week How often do you get together with friends or relatives: 3 or more times per week How often do you attend restoration or episcopalian services: never Do you belong to any clubs or organizations such as restoration groups unions, fraternal or athletic groups, or school groups: no Total score: 1 Score interpretation: A score of less than or equal to 1 indicates the most socially isolated. Little interest or pleasure in doing things: not at all Feeling down, depressed, or hopeless: not at all Feel stressed/tense/nervous/anxious/difficulty sleeping: not at all Life stressors: recent of family or friend Do you think of yourself as: straight/heterosexual Gender Identity: female Exam Constitutional Vital Signs, click to edit/add: Last Vital Signs Temp 99.2 F 01/11/23 05:15 Pulse 135 H 01/11/23 09:05 Resp 21 01/11/23 09:05 BP 93/71 01/11/23 09:05 Pulse Ox 97 01/11/23 08:20 Course Vital Signs Vital signs: Vital Signs Temperature 99.2 F 01/11/23 05:15 Pulse Rate 140 H 01/11/23 05:15 Respiratory Rate 16 01/11/23 05:15 Blood Pressure 79/62 L 01/11/23 05:15 Pulse Oximetry 98 01/11/23 05:15 Temperature 99.2 F 01/11/23 05:15 Pulse Rate 135 H 01/11/23 09:05 Respiratory Rate 21 01/11/23 09:05 Blood Pressure 93/71 01/11/23 09:05 Pulse Oximetry 97 01/11/23 08:20 Medical Decision Making MDM Narrative Medical decision making narrative: The patient presents with gastrointestinal bleed and she has elevated troponins. Intermittently her heart rate has been in the 130s and 80s. She was hypotensive and this seems to have responded somewhat to IV fluids. BUN and creatinine are elevated, my impression of that blood test is that she has volume depletion.m Additionally the CAT scan shows a mass in her right breast. I discussed this matter with the two daughters and they report that she's never had a mammogram and has never had a diagnosis of cancer. The likelihood that this is cancer was discussed with her daughters. At this point she has DNR CC status and daughters are requesting hospice. I've spoken to social work instructor and this is being arranged. For now she is being admitted with hospitalist pending. The case is discussed with Dr. Rowe. Differential Diagnosis Differential Diagnosis: upper gastrointestinal bleed, lower gastrointestinal bleed, myocardial infa Medical Records Medical records reviewed: Yes I reviewed the patient's medical records Lab Data Lab results reviewed: Yes I reviewed the patient's lab results Labs: Lab Results 01/11/23 01/11/23 Range/Units 05:29 07:54 WBC 11.2 H (4.0-11.0) 10^3/uL RBC 4.49 (4.20-5.40) 10^6/uL Hgb 14.1 (12.0-16.0) g/dL Hct 44.4 (36.0-48.0) % MCV 98.9 (81.0-99.0) fL MCH 31.4 (26.7-34.0) pg MCHC 31.8 (29.9-35.2) g/dL RDW 12.6 (11.0-15.0) % Plt Count 171 (150-450) 10^3/uL MPV 11.9 (9.5-13.5) fL Neut % (Auto) 70.9 (43.0-75.0) % Lymph % (Auto) 16.2 L (20.5-60.0) % [place] % (Auto) 10.2 (1.7-12.0) % Eos % (Auto) 1.7 (0.9-7.0) % Baso % (Auto) 0.6 (0.2-2.0) % Neut # (Auto) 7.9 H (1.4-6.5) 10^3/uL Lymph # (Auto) 1.8 (1.2-3.8) 10^3/uL [place] # (Auto) 1.1 H (0.3-0.8) 10^3/uL Eos # (Auto) 0.2 (0.0-0.7) 10^3/uL Baso # (Auto) 0.1 (0.0-0.1) 10^3/uL Abs Immat Gran (auto) 0.04 H (0.00-0.03) 10^3/uL Imm/Tot Granulo (auto) 0.4 (0.0-0.5) % Sodium 138 (136-145) mmol/L Potassium 4.6 (3.5-5.1) mmol/L Chloride 105 (98-107) mmol/L Carbon Dioxide 24.1 (21.0-32.0) mmol/L Anion Gap 13.5 BUN 58.0 H (7.0-18.0) mg/dL Creatinine 2.04 H (0.55-1.02) mg/dL Est GFR ( Amer) 28 L (>=60) Est GFR (Non-Af Amer) 23 L (>=60) BUN/Creatinine Ratio 28.4 Glucose 113 H (74-106) mg/dL Lactate 1.3 (0.4-2.0) mmol/L Calcium 9.1 (8.5-10.1) mg/dL Total Bilirubin 0.7 (0.2-1.0) mg/dL AST 18 (15-37) U/L ALT <6 L (14-59) U/L Alkaline Phosphatase 44 L (46-116) U/L Troponin I High Sens 1561.1 H* 1941.6 H* (4.0-51.3) pg/mL Total Protein 7.2 (6.4-8.2) g/dL Albumin 3.7 (3.4-5.0) g/dL Globulin 3.5 g/dL Albumin/Globulin Ratio 1.1 Blood Type B Negative Antibody Screen Negative Imaging Data CT scan - abdomen: Attestation: I have reviewed the pertinent imaging results. (CT per radiologist shows probable fecal impaction but also a mass in her right breast.) ECG Data Attestation: I personally reviewed and interpreted this ECG as follows: (EKG with time of 6:28 AM on my interpretation shows tachycardia with a rate of 139. A 2nd EKG performed at 7:55 AM shows sinus rhythm with a rate of [address] segment elevation. PVC present.) Discharge Plan Discharge Chief Complaint: GI Bleed Clinical Impression: Gastrointestinal bleed, Myocardial infarction, Breast mass in female Patient Disposition: Admitted as Observation Time of Disposition Decision: 09:33 Condition: Serious Prescriptions / Home Meds: No Action escitalopram oxalate [Lexapro] 10 mg tablet 10 mg PO DAILY sennosides [senna] 8.6 mg tablet 8.6 mg PO DAILY buspirone 5 mg tablet 5 mg PO TID lisinopril 20 mg tablet 20 mg PO DAILY atenolol 25 mg tablet 25 mg PO Q24H meloxicam 7.5 mg tablet 7.5 mg PO DAILY diazepam 5 mg tablet 5 mg PO BID cefdinir 300 mg capsule 300 mg PO BID 10 Days Qty: 20 0RF oxycodone 10 mg tablet 10 mg PO Q12H 5 Days Qty: 10 0RF
--- NOTE | 2023-01-11 10:18 | P.HP_ITS ---
H&P: HPI History of Present Illness Chief complaint: GI BLEED Narrative: Patient has rectal bleeding. She has had this in the past. Was found to be more hemorrhoids. Patient also with altered mental status. She does have baseline dementia. Evaluation in ER found breast mass with likely cancer. Kidney function also elevated. With change in mental status and progression of disease family considering on discussion with hospice. Patient made DNR-cc Review of Systems ROS Status of ROS 10 or more systems reviewed and unremarkable except as noted in history and below PFSH PFSH Medical History Surgical History (Updated 12/12/22 @ 21:17 by Esmer Sage) Family History (Updated 12/12/22 @ 21:07 by Esmer Sage) Father Family history of cancer Grandmother Family history of stroke Social History (Updated 12/12/22 @ 21:08 by Esmer Sage) Within the past year, how often did you have a drink containing alcohol: never Score interpretation: A score less than 3 is consistent with normal alcohol consumption. 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 Highest level of school completed/degree received: 11th grade Are you now , , , , never or living with a partner: In a typical week, how many times do you talk on the telephone with family, friends, or neighbors: 3 or more times per week How often do you get together with friends or relatives: 3 or more times per week How often do you attend evangelical or religion services: never Do you belong to any clubs or organizations such as evangelical groups unions, fraternal or athletic groups, or school groups: no Total score: 1 Score interpretation: A score of less than or equal to 1 indicates the most socially isolated. Little interest or pleasure in doing things: not at all Feeling down, depressed, or hopeless: not at all Feel stressed/tense/nervous/anxious/difficulty sleeping: not at all Life stressors: recent of family or friend Do you think of yourself as: straight/heterosexual Gender Identity: female Meds Home Medications and Allergies Home Medications Medication Instructions Recorded Confirmed Type atenolol 25 mg tablet 25 mg PO Q24H 12/12/22 12/12/22 History buspirone 5 mg tablet 5 mg PO TID 12/12/22 12/12/22 History diazepam 5 mg tablet 5 mg PO BID 12/12/22 12/12/22 History lisinopril 20 mg tablet 20 mg PO DAILY 12/12/22 12/12/22 History meloxicam 7.5 mg tablet 7.5 mg PO DAILY 12/12/22 12/12/22 History cefdinir 300 mg capsule 300 mg PO BID 10 days #20 caps 12/15/22 Rx oxycodone 10 mg tablet 10 mg PO Q12H 5 days #10 tabs 12/15/22 Rx escitalopram oxalate 10 mg tablet 10 mg PO DAILY 01/11/23 01/11/23 History (Lexapro) sennosides 8.6 mg tablet (senna) 8.6 mg PO DAILY 01/11/23 01/11/23 History Allergies Allergy/AdvReac Type Severity Reaction Status Date / Time No Known Drug Allergies Allergy Verified 01/11/23 05:21 Exam Constitutional Vital Signs, click to edit/add: Last Vital Signs Temp 99.2 F 01/11/23 05:15 Pulse 135 H 01/11/23 09:05 Resp 21 01/11/23 09:05 BP 95/66 01/11/23 09:30 Pulse Ox 97 01/11/23 08:20 Documenting provider has reviewed patient's vital signs: yes Common normals: apparent distress (Sedated) Chest Common normals: inspection of chest normal Respiratory Common normals: normal respiratory effort, no retractions and clear to auscultation bilaterally Cardio Rate: tachycardic GI Common normals: Normal to inspection, nondistended, normoactive bowel sounds present Results Labs Labs: Short CBC 01/11/23 Range/Units 05:29 WBC 11.2 H (4.0-11.0) 10^3/uL Hgb 14.1 (12.0-16.0) g/dL Hct 44.4 (36.0-48.0) % Plt Count 171 (150-450) 10^3/uL BMP 01/11/23 05:29 Sodium 138 Potassium 4.6 Chloride 105 Carbon Dioxide 24.1 BUN 58.0 H Creatinine 2.04 H Glucose 113 H Calcium 9.1 Liver Function 01/11/23 Range/Units 05:29 Total Bilirubin 0.7 (0.2-1.0) mg/dL AST 18 (15-37) U/L ALT <6 L (14-59) U/L Alkaline Phosphatase 44 L (46-116) U/L Albumin 3.7 (3.4-5.0) g/dL Assessment and Plan Assessment and Plan (1) Gastrointestinal bleed: (2) Breast mass in female: (3) Dementia: Plan Sinus tachycardia, significant hypotension, acute kidney injury, progression of dementia, now with right breast 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 She was having quite a bit of pain, given morphine in ER with some improvement, she normally takes Valium. Has had bad reactions to Ativan. We will try oral morphine for pain control, consult to hospice
--- NOTE | 2023-01-11 10:34 | SWNOTE1 ---
IGA spoke with ER physician and pt is from facility and family would like to pursue hospice. Pt will be admitted. GIA reviewed the chart and pt is from [facility]. GIA reached out to [facility] and she is skilled there. GIA then received a message from Alex at [facility] and family just called and they are taking patient home with hospice. Case management spoke with family and they would like [facility], referral sent to [facility].
--- NOTE | 2023-01-11 10:44 | CM.NOTE ---
Dr. Rowe in to evaluate pt, daughter's voice that they just want to keep her comfortable. They would like to consult Hospice, [facility] being the choice. Daughter's voice their wish to take her home with hospice once her anxiety is under control.
[2023-01-11] MEDS: LACTATED RINGER'S SOLUTION 1,000 ML 100 ML IV ×2 (12:08→23:08)
--- NOTE | 2023-01-11 12:19 | SWNOTE1 ---
SW called [facility] to check on referral. Fax confirmation went through a little over an hour ago. [facility] stated they did not receive referral. SW now sending it to referral email and also re-faxed it.
--- NOTE | 2023-01-11 14:30 | SWNOTE1 ---
[facility] will be here at 4:00, they have already confirmed with daughters on time. SW updated nursing.
[2023-01-11] MEDS: MORPHINE SULFATE 100 MG/5 ML SOLUTION 10 MG PO ×2 (14:42→18:50)
[2023-01-12] MEDS: MORPHINE SULFATE 100 MG/5 ML SOLUTION 10 MG PO ×3 (03:10→14:07)
[2023-01-12 04:21] VITALS: O2SAT 95
[2023-01-12 06:00] VITALS: BP 109/78; PULSE 102; RESP 20; TEMP 36.7; O2SAT 94
[2023-01-12] MEDS: LACTATED RINGER'S SOLUTION 1,000 ML 100 ML IV (08:38)
--- NOTE | 2023-01-12 09:19 | PM.DS1 ---
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 That will happen today. Pain well controlled with morphine. Held off on Ativan secondary to adverse reaction in the past Time Spent with Patient Time attestation: Total time spent providing and/or coordinating discharge services: Exam Constitutional Vital Signs, click to edit/add: Last Vital Signs Temp 98.1 F 01/12/23 06:00 Pulse 102 H 01/12/23 06:00 Resp 20 01/12/23 06:00 BP 109/78 01/12/23 06:00 Pulse Ox 94 L 01/12/23 06:00 O2 Del Method Room Air 01/12/23 06:00 Documenting provider has reviewed patient's vital signs: yes Common normals: apparent distress (Sedated) Chest Common normals: inspection of chest normal Respiratory Common normals: normal respiratory effort, no retractions and clear to auscultation bilaterally Cardio Rate: tachycardic GI Common normals: Normal to inspection, nondistended, normoactive bowel sounds present Discharge Plan Discharge Disposition: Hospice - Home Condition: Serious Discharge Medications: New morphine concentrate 100 mg/5 mL (20 mg/mL) Solution 10 mg PO Q2H PRN (Reason: Pain) Qty: 60 0RF Held oxycodone 10 mg tablet 10 mg PO Q12H Hold Instructions: Resume on 01/25/23. Rx Instructions: PER RETAIL FILL HX - LAST FILLED 12/15/22 #60 FOR A 30 DAY SUPPLY Discontinued escitalopram oxalate [Lexapro] 10 mg tablet 10 mg PO DAILY sennosides [senna] 8.6 mg tablet 8.6 mg PO DAILY buspirone 5 mg tablet 5 mg PO TID lisinopril 20 mg tablet 20 mg PO DAILY Rx Instructions: PER RETAIL FILL HX - LAST FILLED 10/17/22 #90 FOR A 90 DAY SUPPLY atenolol 25 mg tablet 25 mg PO QDAY Rx Instructions: PER RETAIL FILL HX - LAST FILLED 10/17/22 #90 FOR A 90 DAY SUPPLY meloxicam 7.5 mg tablet 7.5 mg PO DAILY Rx Instructions: PER RETAIL FILL HX - LAST FILLED 10/17/22 #90 FOR A 90 DAY SUPPLY diazepam 5 mg tablet 5 mg PO BID Rx Instructions: PER RETAIL FILL HX - LAST FILLED 12/15/22 #60 FOR A 30 DAY SUPPLY cefdinir 300 mg capsule 300 mg PO BID 10 Days Qty: 20 0RF Forms: Portal Instructions
--- NOTE | 2023-01-12 09:44 | CM.NOTE ---
Rounds made with Dr. Rowe, pt will discharge home with Hospice today.
--- NOTE | 2023-01-12 11:37 | SWNOTE1 ---
[facility] set up [facility] for 3:30 today. SW filled out [facility] paperwork.
[2023-01-12 11:49] VITALS: O2SAT 94
[2023-01-12 14:11] VITALS: BP 114/70; PULSE 147; RESP 22; TEMP 37.6; O2SAT 92
== END 2023-01-12 15:36 | disposition hospice, home (50) ==
LOC: ER 07:25 → MS 09:32
PROVIDERS: Emergency Medicine; Admitting Provider Family Medicine; Emergency Provider Emergency Medicine; PCP Physician Assistant; Visit Provider Family Medicine
DX: K92.2 Gastrointestinal hemorrhage, unspecified (principal); F03.90 Unspecified dementia, unspecified severity, without behavioral disturbance, psychotic disturbance, mood disturbance, and anxiety; N63.10 Unspecified lump in the right breast, unspecified quadrant; R00.0 Tachycardia, unspecified; I95.9 Hypotension, unspecified; N17.9 Acute kidney failure, unspecified; R79.89 Other specified abnormal findings of blood chemistry; Z68.24 Body mass index [BMI] 24.0-24.9, adult; E66.9 Obesity, unspecified; Z66 Do not resuscitate; Z79.899 Other long term (current) drug therapy; Z87.891 Personal history of nicotine dependence
CPT/HCPCS: 36415; 51702; 71045; 74176; 80053; 83605; 84484; 85025; 86850; 86900; 86901; 93005; 94761; 96361; 96374; 96375; 99285; G0378